=== PATIENT | male | born 1945 | race Caucasian/White ===

== ENCOUNTER 2016-04-03 14:28 | Emergency (ER) | payer MEDICARE ==
--- NOTE | 2016-04-03 15:21 | Emergency Department Record ---
History of Present Illness - General Chief complaint: Male Urogenital Problem Stated complaint: CATHETER PROBLEM Time Seen by Provider: 04/03/16 15:20 Source: Patient Mode of Arrival: Ambulatory Limitations: No limitations - History of Present Illness Initial comments: The patient is here due to being unable to straight cath himself this afternoon and having some blood in the catheter after. The patient has had a bladder issue with retention for almost 6 weeks. He did get his Dillon catheter removed yesterday and had successfully cathed himself 3 times since. The last time he tried he was not successful and did have some mild bleeding. There is no reported pain, fever, or vomiting. The patient was unable to contact his urologist so he decided to come to the ER. MD Complaint: Other Onset/Timin -: Days(s) Radiation: None Reports: Blood in urine - Related Data Home Medications Medication Instructions Recorded Confirmed Last Taken Aspirin [Aspirin EC] 81 mg PO DAILY 09/26/14 04/03/16 04/03/16 Atorvastatin Calcium [Lipitor] 40 mg PO QHS 09/26/14 04/03/16 04/03/16 Multivitamin [Multi-Vitamin Daily] 1 each PO DAILY 09/26/14 04/03/16 04/03/16 Allergies Allergy/AdvReac Type Severity Reaction Status Date / Time nabumetone [From Relafen] Allergy Mild no idea Verified 04/03/16 15:16 Travel Screening - Travel/Exposure Within Last 30 Days Have you traveled within the last 30 days?: No - Travel/Exposure Within Last Year Have you traveled outside the [place] in the last year?: No - Additonal Travel Details Have you been exposed to anyone with a communicable illness?: No - Travel Symptoms Symptom Screening: None Review of Systems Constitutional: Denies: Chills, Fever Eyes: Denies: Eye discharge ENT: Denies: Congestion Respiratory: Denies: Cough, Dyspnea Past Medical History - SOCIAL HISTORY Smoking Status: Never smoker Alcohol Use: Rare Drug Use: None - RESPIRATORY Hx Respiratory Disorders: No - CARDIOVASCULAR Hx Cardio Disorders: No - NEURO Hx Neuro Disorders: No - GI Hx GI Disorders: Yes Hx Obstructive Bowel: Yes (many yrs ago) - Hx Genitourinary Disorders: Yes Hx UTI: Yes (yr ago) - ENDOCRINE Hx Endocrine Disorders: No - MUSCULOSKELETAL Hx Musculoskeletal Disorders: Yes Comment:: swelling left breast and tender - PSYCH Hx Psych Problems: Yes Comment:: PTSD, [place] vet - HEMATOLOGY/ONCOLOGY Hx Hematology/Oncology Disorders: No Family Medical History Any Significant Family History?: Yes Hx Diabetes: Mother Physical Exam - General General Appearance: Alert, Oriented x3, Cooperative, No acute distress - Head Head exam: Atraumatic, Normocephalic, Normal inspection - Eye Eye exam: Normal appearance, PERRL - Respiratory Respiratory exam: Normal lung sounds bilaterally. negative: Respiratory distress - Cardiovascular Cardiovascular Exam: Regular rate, Normal rhythm, Normal heart sounds - GI/Abdominal GI/Abdominal exam: Soft, Normal bowel sounds. negative: Guarding, Rebound, Rigid, Tenderness - exam: Circumcision, Normal inspection. negative: Scrotal swelling, Testicular tenderness Course Vital Signs 04/03/16 15:07 Temperature 97.3 F L Pulse Rate 80 Respiratory 16 Rate Blood Pressure 164/95 Pulse Ox 96 - Reevaluation(s) Reevaluation #1: We did straight cath the patient and did get 300 cc of clear urine out with no pain or complications. There was very minimal resistance but no pain or trauma or bleeding. I did discuss the case with Dr. Kearney and he agrees with the plan to discharge and to continue the straight caths at home. 04/03/16 16:55 Disposition Disposition: Discharge Clinical Impression: Urinary retention Disposition: Home, Self-Care Condition: (1) Good Instructions: Urinary Retention in Men (ED) Additional Instructions: Please continue your discharge instructions from the Urologist. Return to the ER for any problems. Forms: Patient Portal Access Time of Disposition: 16:54
[2016-04-03 16:15] LABS: URINE APPEARANCE SL CLOUDY; URINE BILIRUBIN NEGATIVE (NEGATIVE); URINE BLOOD MODERATE (NEGATIVE); URINE COLOR YELLOW; URINE GLUCOSE (UA) NEGATIVE (NEGATIVE); URINE KETONE NEGATIVE (NEGATIVE); URINE LEUKOCYTE ESTERASE NEGATIVE (NEGATIVE); URINE NITRITE POSITIVE (NEGATIVE); URINE PROTEIN NEGATIVE (NEGATIVE); URINE UROBILINOGEN 0.2 E.U./dL (0.20 - 1.00)
[2016-04-03 16:30] LABS: URINE BACTERIA 1+; URINE EPITHELIAL CELLS 0 - 2 (FEW); URINE WBC NONE SEEN (0-2/hpf)
== END 2016-04-03 17:06 | disposition home or self-care (01) ==
LOC: ER 14:28
DX: R33.8 Other retention of urine (principal); R31.0 Gross hematuria
CPT/HCPCS: 81001; 87086; 87205; 99283

== ENCOUNTER 2016-04-04 14:54 | Emergency (ER) | payer MEDICARE ==
--- NOTE | 2016-04-04 16:19 | Emergency Department Record ---
History of Present Illness - General Chief complaint: Male Urogenital Problem Stated complaint: URINARY PROBLEM Time Seen by Provider: 04/04/16 16:19 Source: Patient Mode of Arrival: Ambulatory Limitations: No limitations - History of Present Illness Initial comments: The patient is here due to having trouble doing his self cath's at home. He recently had a garrett catheter removed due to a bladder outlet issue. He was in the ER yesterday and we were able to cath him. He went home last evening and was also successful with doing the self caths. This afternoon he has been unable to perform the procedure. His urologist has recommended we place a garrett catheter. Complaint: Other Onset/Timin -: Days(s) Radiation: None Other Reports: Urinary retention - Related Data Home Medications Medication Instructions Recorded Confirmed Last Taken Aspirin [Aspirin EC] 81 mg PO DAILY 09/26/14 04/04/16 04/04/16 Atorvastatin Calcium [Lipitor] 40 mg PO QHS 09/26/14 04/03/16 04/03/16 Multivitamin [Multi-Vitamin Daily] 1 each PO DAILY 09/26/14 04/04/16 04/04/16 Allergies Allergy/AdvReac Type Severity Reaction Status Date / Time nabumetone [From Relafen] Allergy Mild no idea Verified 04/03/16 15:16 Travel Screening - Travel/Exposure Within Last 30 Days Have you traveled within the last 30 days?: No - Travel/Exposure Within Last Year Have you traveled outside the [place] in the last year?: No - Additonal Travel Details Have you been exposed to anyone with a communicable illness?: No - Travel Symptoms Symptom Screening: None Review of Systems Constitutional: Denies: Chills, Fever, Other ENT: Denies: Congestion Respiratory: Denies: Cough, Dyspnea Past Medical History - SOCIAL HISTORY Smoking Status: Never smoker Alcohol Use: None Drug Use: None - RESPIRATORY Hx Respiratory Disorders: No - CARDIOVASCULAR Hx Cardio Disorders: No - NEURO Hx Neuro Disorders: No - GI Hx GI Disorders: Yes Hx Obstructive Bowel: Yes (many yrs ago) - Hx Genitourinary Disorders: Yes Hx UTI: Yes (yr ago) - ENDOCRINE Hx Endocrine Disorders: No - MUSCULOSKELETAL Hx Musculoskeletal Disorders: Yes Comment:: swelling left breast and tender - PSYCH Hx Psych Problems: Yes Comment:: PTSD, [place] vet - HEMATOLOGY/ONCOLOGY Hx Hematology/Oncology Disorders: No Family Medical History Any Significant Family History?: Yes Hx Diabetes: Mother Physical Exam - General General Appearance: Alert, Oriented x3, Cooperative, No acute distress - Head Head exam: Atraumatic, Normocephalic, Normal inspection - Eye Eye exam: Normal appearance, PERRL - Neck Neck exam: Normal inspection, Full ROM. negative: Tenderness - Respiratory Respiratory exam: Normal lung sounds bilaterally. negative: Respiratory distress - Cardiovascular Cardiovascular Exam: Regular rate, Normal rhythm, Normal heart sounds - GI/Abdominal GI/Abdominal exam: Soft, Normal bowel sounds. negative: Tenderness - Extremities Extremities exam: Normal inspection, Full ROM, Normal capillary refill. negative: Tenderness Course Vital Signs 04/04/16 15:33 Temperature 98.1 F Pulse Rate 87 Respiratory 16 Rate Blood Pressure 173/96 Pulse Ox 99 - Reevaluation(s) Reevaluation #1: The patient had a garrett catheter placed without difficulty. He will contact his Urologist on Wednesday for further instructions. 04/04/16 17:14 Disposition Disposition: Discharge Clinical Impression: Urinary retention Disposition: Home, Self-Care Condition: (1) Good Instructions: Garrett Catheter Placement and Care (ED) Additional Instructions: Please call your Urologist on Wednesday for further instructions. Return to the ER for any problems. Forms: Patient Portal Access Time of Disposition: 17:16
== END 2016-04-04 17:50 | disposition home or self-care (01) ==
LOC: ER 14:54
DX: R33.8 Other retention of urine (principal)
CPT/HCPCS: 99282

== ENCOUNTER 2017-01-05 23:47 | Emergency (ER) | payer MEDICARE ==
--- NOTE | 2017-01-06 00:14 | Emergency Department Record ---
History of Present Illness - General Chief complaint: Male Urogenital Problem Stated complaint: UNABLE TO CATH Time Seen by Provider: 01/06/17 00:08 Source: Patient Mode of Arrival: Ambulatory Limitations: No limitations - History of Present Illness Initial comments: 71 yo male presents to ED with a CC of urinary retention for the past 6 hours. Patient reports that he was seen by the [facility] earlier today and underwent prostate examination, reports that he has been unable to self-cath at home for the past 6 hours. Patient denies fevers, chills, or recent illness, only reports mild suprapubic cramping on examination. MD Complaint: Other (urinary retention) Onset/Timin -: Hour(s) Severity: Moderate Quality: Other (cramping) Consistency: Constant Improves with: None Worsens with: None Other Reports: Denies other symptoms - Related Data Allergies Allergy/AdvReac Type Severity Reaction Status Date / Time nabumetone [From Relafen] Allergy Mild no idea Verified 04/03/16 15:16 Travel Screening - Travel/Exposure Within Last 30 Days Have you traveled within the last 30 days?: No Review of Systems Constitutional: Denies: Chills, Fever, Malaise, Night sweats Eyes: Denies: Eye discharge, Eye pain ENT: Denies: Congestion, Ear pain, Epistaxis Respiratory: Denies: Cough, Dyspnea Cardiovascular: Denies: Chest pain, Dyspnea on exertion Endocrine: Denies: Fatigue, Heat or cold intolerance Gastrointestinal: Reports: Abdominal pain. Denies: Nausea, Vomiting Genitourinary: Reports: Retention. Denies: Incontinence Musculoskeletal: Denies: Arthralgia, Back pain, Gout, Joint swelling Skin: Denies: Bruising, Change in color Neurological: Denies: Abnormal gait, Confusion, Headache, Seizure Psychiatric: Denies: Anxiety Hematological/Lymphatic: Denies: Anemia, Blood Clots Past Medical History - SOCIAL HISTORY Smoking Status: Never smoker Alcohol Use: None Drug Use: None - RESPIRATORY Hx Respiratory Disorders: No - CARDIOVASCULAR Hx Cardio Disorders: No - NEURO Hx Neuro Disorders: No - GI Hx GI Disorders: Yes Hx Obstructive Bowel: Yes (many yrs ago) - Hx Genitourinary Disorders: Yes Hx UTI: Yes (yr ago) - ENDOCRINE Hx Endocrine Disorders: No - MUSCULOSKELETAL Hx Musculoskeletal Disorders: Yes Comment:: swelling left breast and tender - PSYCH Hx Psych Problems: Yes Comment:: PTSD, [place] vet - HEMATOLOGY/ONCOLOGY Hx Hematology/Oncology Disorders: No Family Medical History Any Significant Family History?: Yes Hx Diabetes: Mother Physical Exam - General General Appearance: Alert, Oriented x3, Cooperative, Moderate distress Limitations: No limitations - Head Head exam: Atraumatic, Normocephalic, Normal inspection Head exam detail: negative: Abrasion, Contusion, Mathew's sign, General tenderness, Hematoma, Laceration - Eye Eye exam: Normal appearance. negative: Conjunctival injection, Periorbital swelling, Periorbital tenderness, Scleral icterus - ENT Ear exam: negative: Auricular hematoma, Auricular trauma Nasal Exam: negative: Active bleeding, Discharge, Dried blood, Foreign body Mouth exam: negative: Drooling, Laceration, Muffled voice, Tongue elevation - Neck Neck exam: Normal inspection. negative: Meningismus, Tenderness - Respiratory Respiratory exam: Normal lung sounds bilaterally. negative: Rales, Respiratory distress, Rhonchi, Stridor - Cardiovascular Cardiovascular Exam: Regular rate, Normal rhythm, Normal heart sounds - GI/Abdominal GI/Abdominal exam: Soft, Tenderness (Mild suprapubic TTP on examination). negative: Rebound, Rigid - Rectal Rectal exam: Deferred - exam: Deferred - Extremities Extremities exam: Normal inspection. negative: Calf tenderness, Pedal edema, Tenderness - Back Back exam: Denies: CVA tenderness (R), CVA tenderness (L) - Neurological Neurological exam: Alert, Normal gait, Oriented X3 - Psychiatric Psychiatric exam: Normal affect, Normal mood - Skin Skin exam: Normal color. negative: Abrasion Type of lesion: negative: abrasion Course Vital Signs 01/05/17 23:56 Temperature 97.7 F Pulse Rate [ 69 Pulse Ox Probe] Respiratory 18 Rate Blood Pressure 158/80 [Left Arm] Pulse Ox 98 - Reevaluation(s) Reevaluation #1: 01/06/17 00:57 UA reviewed and appears negative for an acute process. Dillon catheter inserted without difficulty, and patient appears stable for discharge at this time. Disposition Disposition: Discharge Clinical Impression: Urinary retention Disposition: Home, Self-Care Condition: (2) Stable Instructions: Urinary Retention in Men (ED) Additional Instructions: Return to ED if your symptoms worsen or if you have any concerns. Follow-up with Dr. Kearney in 1-3 days as directed. Forms: Patient Portal Access Time of Disposition: 00:59 Quality - Quality Measures Quality Measures: N/A - Blood Pressure Screening Does Patient Have Any of the Following: No Blood Pressure Classification: Pre-Hypertensive BP Reading Systolic Measurement: 146 Diastolic Measurement: 80 Screening for High Blood Pressure: < Pre-Hypertensive BP, F/U Documented > [ G8950] Pre-Hypertensive Follow-up Interventions: Referral to alternative/primary care provider.
[2017-01-06] MEDS: LIDOCAINE UROJECT 10 ML APPL MM ONE (00:25)
[2017-01-06 00:47] LABS: URINE APPEARANCE CLEAR; URINE BILIRUBIN NEGATIVE (NEGATIVE); URINE BLOOD LARGE (NEGATIVE); URINE COLOR YELLOW; URINE GLUCOSE (UA) NEGATIVE (NEGATIVE); URINE KETONE NEGATIVE (NEGATIVE); URINE LEUKOCYTE ESTERASE SMALL (NEGATIVE); URINE NITRITE POSITIVE (NEGATIVE); URINE PROTEIN NEGATIVE (NEGATIVE); URINE UROBILINOGEN 0.2 E.U./dL (0.20 - 1.00)
[2017-01-06 00:53] LABS: URINE BACTERIA FEW; URINE EPITHELIAL CELLS 0 - 2 (FEW); URINE RBC 21 - 35 (NONE SEEN); URINE WBC 0 - 2 (0-2/hpf)
== END 2017-01-06 01:15 | disposition home or self-care (01) ==
LOC: ER 23:47
DX: R33.9 Retention of urine, unspecified (principal)
CPT/HCPCS: 81001; 99282

== ENCOUNTER 2017-01-07 22:16 | Emergency (ER) | payer MEDICARE ==
[2017-01-07] MEDS ORDERED: LIDOCAINE UROJECT 10 ML APPL MM ONE (22:40)
--- NOTE | 2017-01-07 22:59 | Emergency Department Record ---
History of Present Illness - General Chief complaint: Male Urogenital Problem Stated complaint: NEED CATH PUT IN Time Seen by Provider: 01/07/17 22:30 Source: Patient Mode of Arrival: Ambulatory Limitations: No limitations - History of Present Illness Initial comments: pt was here 3 days ago for urinary retention. he had a garrett placed. he went to the md today and they removed the cath and once again pt cannot go and comes in with urinary retention Onset/Timin -: Days(s) Radiation: None Improves with: None Worsens with: None Reports: Blood in urine, Urinary retention - Related Data Previous Rx's Medication Instructions Recorded Ciprofloxacin HCl [Cipro] 500 mg PO Q12HR #14 tablet 01/07/17 Allergies Allergy/AdvReac Type Severity Reaction Status Date / Time nabumetone [From Relafen] Allergy Mild no idea Verified 04/03/16 15:16 Travel Screening - Travel/Exposure Within Last 30 Days Have you traveled within the last 30 days?: No - Travel/Exposure Within Last Year Have you traveled outside the [place] in the last year?: No - Additonal Travel Details Have you been exposed to anyone with a communicable illness?: No Review of Systems Reviewed: No additional complaints except as noted below Constitutional: Reports: As per HPI. Denies: Chills, Fever, Malaise, Night sweats, Weakness, Weight change Eyes: Reports: As per HPI. Denies: Eye discharge, Eye pain, Photophobia, Vision change ENT: Reports: As per HPI. Denies: Congestion, Dental pain, Ear pain, Epistaxis , Hearing loss, Throat pain Respiratory: Reports: As per HPI. Denies: Cough, Dyspnea, Hemoptysis, Stridor, Wheezes Cardiovascular: Reports: As per HPI. Denies: Arrhythmia, Chest pain, Dyspnea on exertion, Edema, Murmurs, Orthopnea, Palpitations, Paroxysmal nocturnal dyspnea, Rheumatic Fever, Syncope Endocrine: Reports: As per HPI. Denies: Fatigue, Heat or cold intolerance, Polydipsia, Polyuria Gastrointestinal: Reports: As per HPI. Denies: Abdominal pain, Constipation, Diarrhea, Hematemesis, Hematochezia, Melena, Nausea, Vomiting Genitourinary: Reports: As per HPI. Denies: Dysuria, Frequency, Hematuria, Incontinence, Retention, Testicular pain, Testicular mass, Urgency Musculoskeletal: Reports: As per HPI. Denies: Arthralgia, Back pain, Gout, Joint swelling, Myalgia, Neck pain Skin: Reports: As per HPI. Denies: Bruising, Change in color, Change in hair/ nails, Lesions, Pruritus, Rash Neurological: Reports: As per HPI. Denies: Abnormal gait, Confusion, Headache, Numbness, Paresthesias, Seizure, Tingling, Tremors, Vertigo, Weakness Psychiatric: Reports: As per HPI. Denies: Anxiety, Auditory hallucinations, Depression, Homicidal thoughts, Suicidal thoughts, Visual hallucinations Hematological/Lymphatic: Reports: As per HPI. Denies: Anemia, Blood Clots, Easy bleeding, Easy bruising, Swollen glands Past Medical History - SOCIAL HISTORY Smoking Status: Never smoker Alcohol Use: None Drug Use: None - RESPIRATORY Hx Respiratory Disorders: No - CARDIOVASCULAR Hx Cardio Disorders: No - NEURO Hx Neuro Disorders: No - GI Hx GI Disorders: Yes Hx Obstructive Bowel: Yes (many yrs ago) - Hx Genitourinary Disorders: Yes Hx UTI: Yes (yr ago) - ENDOCRINE Hx Endocrine Disorders: No - MUSCULOSKELETAL Hx Musculoskeletal Disorders: Yes Comment:: swelling left breast and tender - PSYCH Hx Psych Problems: Yes Comment:: PTSD, [place] vet - HEMATOLOGY/ONCOLOGY Hx Hematology/Oncology Disorders: No Family Medical History Any Significant Family History?: Yes Hx Diabetes: Mother Physical Exam - General General Appearance: Alert, Oriented x3, Cooperative, Mild distress - Head Head exam: Normal inspection - Eye Eye exam: Normal appearance, PERRL, EOMI Pupils: Normal accommodation - ENT ENT exam: Normal exam, Mucous membranes moist, Normal external ear exam, Normal orophraynx Ear exam: Normal external inspection. negative: External canal tenderness Nasal Exam: Normal inspection. negative: Discharge, Sinus tenderness Mouth exam: Normal external inspection, Tongue normal Teeth exam: Normal inspection. negative: Dental caries Throat exam: Normal inspection. negative: Tonsillar erythema, Tonsillar exudate - Neck Neck exam: Normal inspection, Full ROM. negative: Tenderness - Respiratory Respiratory exam: Normal lung sounds bilaterally. negative: Respiratory distress - Cardiovascular Cardiovascular Exam: Regular rate, Normal rhythm, Normal heart sounds - GI/Abdominal GI/Abdominal exam: Soft, Normal bowel sounds. negative: Tenderness - Rectal Rectal exam: Deferred - exam: Deferred - Extremities Extremities exam: Normal inspection, Full ROM, Normal capillary refill. negative: Tenderness - Back Back exam: Reports: Normal inspection, Full ROM. Denies: Muscle spasm, Rash noted, Tenderness - Neurological Neurological exam: Alert, CN II-XII intact, Normal gait, Oriented X3 - Psychiatric Psychiatric exam: Normal affect, Normal mood - Skin Skin exam: Dry, Intact, Normal color, Warm Course Vital Signs 01/07/17 01/07/17 22:19 22:24 Temperature 97.7 F 97.9 F Pulse Rate 67 Pulse Rate [ 67 Pulse Ox Probe] Respiratory 20 20 Rate Blood Pressure 149/85 Blood Pressure 149/85 [Left Arm] Pulse Ox 97 96 - Reevaluation(s) Reevaluation #1: 01/07/17 22:59 catheter placed. pt feels better Disposition Disposition: Discharge Clinical Impression: Urinary retention UTI (urinary tract infection) Qualifiers: Urinary tract infection type: catheter-associated UTI Indwelling urinary catheter type: unspecified Encounter type: initial encounter Qualified Code(s): T83.511A - Infection and inflammatory reaction due to indwelling urethral catheter, initial encounter; N39.0 - Urinary tract infection, site not specified ; N39.0 - Urinary tract infection, site not specified Disposition: Home, Self-Care Condition: (1) Good Instructions: Urinary Retention in Men (ED), Urinary Tract Infection in Men (ED ) Additional Instructions: follow up with dr carpenter tomorrow. return sooner if worse Prescriptions: Ciprofloxacin HCl [Cipro] 500 mg PO Q12HR #14 tablet Forms: Patient Portal Access Quality - Quality Measures Quality Measures: N/A - Blood Pressure Screening Does Patient Have Any of the Following: No Blood Pressure Classification: Pre-Hypertensive BP Reading Systolic Measurement: 149 Diastolic Measurement: 85 Screening for High Blood Pressure: < Pre-Hypertensive BP, F/U Documented > [ G8950] Pre-Hypertensive Follow-up Interventions: Follow-up with rescreen every year.
[2017-01-07 23:04] LABS: URINE APPEARANCE CLEAR; URINE BILIRUBIN NEGATIVE (NEGATIVE); URINE BLOOD SMALL (NEGATIVE); URINE COLOR YELLOW; URINE GLUCOSE (UA) NEGATIVE (NEGATIVE); URINE KETONE NEGATIVE (NEGATIVE); URINE LEUKOCYTE ESTERASE TRACE (NEGATIVE); URINE NITRITE NEGATIVE (NEGATIVE); URINE PROTEIN NEGATIVE (NEGATIVE); URINE UROBILINOGEN 0.2 E.U./dL (0.20 - 1.00)
[2017-01-07 23:16] LABS: URINE BACTERIA FEW; URINE MUCUS LIGHT
[2017-01-07] MEDS ORDERED: CIPROFLOXACIN HCL 500 MG TABLET PO ONE (23:17)
== END 2017-01-07 23:29 | disposition home or self-care (01) ==
LOC: ER 22:16
DX: T83.511A Infection and inflammatory reaction due to indwelling urethral catheter, initial encounter (principal); N39.0 Urinary tract infection, site not specified; R33.9 Retention of urine, unspecified; R31.0 Gross hematuria
CPT/HCPCS: 81001; 99282

== ENCOUNTER 2017-05-13 22:16 | Emergency (ER) | payer MEDICARE ==
--- NOTE | 2017-05-13 23:12 | Emergency Department Record ---
History of Present Illness - General Chief complaint: Male Urogenital Problem Stated complaint: NEED A FHOLY PUT IN Time Seen by Provider: 05/13/17 22:51 Source: Patient, Family Mode of Arrival: Ambulatory Limitations: No limitations - History of Present Illness Initial comments: 71 yo male presents with a concern about urinary retention. He has a long history of prostate and urinary symptoms. He has had multiple surgeries in the past. Dr Kearney and [facility] have been his surgeons. He most recently had a TURP at [facility] [place] Wednesday. He had the garrett removed today. He had a garrett in for 3 months prior to this surgery. His garrett was removed at 10am today. He did self cath today twice but then voided in the evening and then at arrival but a smaller amount. He feels some urge to void at this time and is concerned about retention. Complaint: Other (Urinary difficulty) -: Hour(s) Location: Abdomen Radiation: None Severity: Mild Quality: Other (pressure) Consistency: Intermittent Improves with: Other (Garrett) Worsens with: Urination Recent surgery (garrett removed today) Reports: Denies other symptoms - Related Data Allergies Allergy/AdvReac Type Severity Reaction Status Date / Time sulfamethoxazole Allergy Intermediate Rash Verified 05/13/17 23:03 [From Bactrim] trimethoprim [From Bactrim] Allergy Intermediate Rash Verified 05/13/17 23:03 nabumetone [From Relafen] Allergy Mild no idea Verified 04/03/16 15:16 Review of Systems Constitutional: Denies: Chills, Fever, Malaise, Weakness Eyes: Denies: Eye discharge, Eye pain ENT: Denies: Congestion, Throat pain Respiratory: Denies: Cough Cardiovascular: Denies: Chest pain, Syncope Endocrine: Denies: Fatigue Gastrointestinal: Reports: Abdominal pain. Denies: Diarrhea, Nausea, Vomiting Genitourinary: Reports: Frequency, Retention. Denies: Discharge, Dysuria, Hematuria, Incontinence, Testicular pain, Testicular mass, Urgency Musculoskeletal: Denies: Arthralgia, Back pain, Neck pain Skin: Denies: Bruising, Change in color, Rash Neurological: Denies: Headache, Numbness, Weakness Psychiatric: Denies: Anxiety Hematological/Lymphatic: Denies: Blood Clots, Easy bleeding, Easy bruising, Swollen glands Past Medical History - SOCIAL HISTORY Smoking Status: Never smoker Drug Use: None - RESPIRATORY Hx Respiratory Disorders: No - CARDIOVASCULAR Hx Cardio Disorders: No - NEURO Hx Neuro Disorders: No - GI Hx GI Disorders: Yes Hx Obstructive Bowel: Yes (many yrs ago) - Hx Genitourinary Disorders: Yes Hx UTI: Yes (yr ago) - ENDOCRINE Hx Endocrine Disorders: No - MUSCULOSKELETAL Hx Musculoskeletal Disorders: Yes Comment:: swelling left breast and tender - PSYCH Hx Psych Problems: Yes Comment:: PTSD, [place] vet - HEMATOLOGY/ONCOLOGY Hx Hematology/Oncology Disorders: No Family Medical History Hx Diabetes: Mother Physical Exam - General General Appearance: Alert, Oriented x3, Cooperative, No acute distress - Head Head exam: Normal inspection - Eye Eye exam: Normal appearance - ENT ENT exam: Normal exam Ear exam: Normal external inspection Nasal Exam: Normal inspection Mouth exam: Normal external inspection - Neck Neck exam: Normal inspection, Full ROM. negative: Tenderness - Respiratory Respiratory exam: Normal lung sounds bilaterally. negative: Respiratory distress - Cardiovascular Cardiovascular Exam: Regular rate, Normal rhythm, Normal heart sounds - GI/Abdominal GI/Abdominal exam: Soft. negative: Distended, Guarding, Rebound, Rigid, Tenderness - Rectal Rectal exam: Deferred - exam: Circumcision, Normal inspection. negative: Scrotal swelling, Testicular tenderness, Urethral discharge - Extremities Extremities exam: Normal inspection, Full ROM, Normal capillary refill. negative: Tenderness - Back Back exam: Reports: Normal inspection, Full ROM. Denies: Muscle spasm, Rash noted, Tenderness - Neurological Neurological exam: Alert, Normal gait, Oriented X3 - Psychiatric Psychiatric exam: Normal affect, Normal mood - Skin Skin exam: Dry, Intact, Normal color, Warm Course - Reevaluation(s) Reevaluation #1: 05/13/17 23:13 The vitals were reviewed. No acute changes 05/13/17 23:45 Garrett was easily placed by RN Gold yellow urine without blood About 1100cc He will be given a leg bag for home He will call his urologist in the morning for instructions. He is very comfortable in the ED No symptoms at this time. 05/14/17 00:08 He is on Cipro and Nitrofurnatoin already and will continue his antibiotics Disposition Disposition: Discharge Clinical Impression: Urinary retention Disposition: Home, Self-Care Condition: (1) Good Instructions: Urinary Retention in Men (ED) Additional Instructions: Continue your antibiotics as directed Call your urologist tomorrow for further instructions regarding the garrett Return if you have any concerns about the garrett function, fever, pain, retention Forms: Patient Portal Access Time of Disposition: 23:00 Quality - Quality Measures Quality Measures: N/A - Blood Pressure Screening Does Patient Have Any of the Following: No, Active Dx of HTN Blood Pressure Classification: Hypertensive Reading Systolic Measurement: 168 Diastolic Measurement: 91 Screening for High Blood Pressure: < Pre-Hypertensive BP, F/U Documented > [ G8950] Pre-Hypertensive Follow-up Interventions: Referral to alternative/primary care provider.
[2017-05-14 00:06] LABS: URINE APPEARANCE CLEAR; URINE BILIRUBIN NEGATIVE (NEGATIVE); URINE BLOOD LARGE (NEGATIVE); URINE COLOR YELLOW; URINE GLUCOSE (UA) NEGATIVE (NEGATIVE); URINE KETONE NEGATIVE (NEGATIVE); URINE LEUKOCYTE ESTERASE TRACE (NEGATIVE); URINE NITRITE NEGATIVE (NEGATIVE); URINE UROBILINOGEN 0.2 E.U./dL (0.20 - 1.00)
[2017-05-14 00:18] LABS: URINE BACTERIA RARE
== END 2017-05-14 00:27 | disposition home or self-care (01) ==
LOC: ER 22:16
DX: R33.8 Other retention of urine (principal)
CPT/HCPCS: 81001; 99282

== ENCOUNTER 2017-05-28 11:39 | Inpatient (IN) | payer MEDICARE ==
[2017-05-28] MEDS ORDERED: ONDANSETRON HCL IV 4 MG/2 ML VIAL IV ONE (12:03)
[2017-05-28] MEDS ORDERED: 0.9 % SODIUM CHLORIDE 1,000 ML BAG IV ONE ×2 (12:03→14:30)
[2017-05-28] MEDS ORDERED: ACETAMINOPHEN 325 MG TAB PO ONE (12:04)
--- NOTE | 2017-05-28 12:12 | Emergency Department Record ---
History of Present Illness - General Chief Complaint: Fever Stated Complaint: FEVER/POST SURGERY Time Seen by Provider: 05/28/17 11:56 Source: Patient Mode of Arrival: Ambulatory Limitations: No limitations - History of Present Illness Initial Comments: The patient is here due to a 3 hour hx of the acute onset of fever, chills, and body aches. The patient did have a TURP done about 3 weeks ago and had a problem with retention after. He had a garrett removed on 05/18 and has been straight cathing since. Today he states the fever came on suddenly and he feels very ill. There is no hx of vomiting, diarrhea, AP, CP or SOB. MD Complaint: Fever, Malaise Onset/Timin -: Hour(s) Temperature Source: Oral Treatments Prior to Arrival: Acetaminophen - Related Data Allergies Allergy/AdvReac Type Severity Reaction Status Date / Time sulfamethoxazole Allergy Intermediate Rash Verified 05/28/17 11:54 [From Bactrim] trimethoprim [From Bactrim] Allergy Intermediate Rash Verified 05/28/17 11:54 nabumetone [From Relafen] Allergy Mild no idea Verified 05/28/17 11:54 Travel Screening - Travel/Exposure Within Last 30 Days Have you traveled within the last 30 days?: No - Travel/Exposure Within Last Year Have you traveled outside the [place] in the last year?: No - Additonal Travel Details Have you been exposed to anyone with a communicable illness?: No - Travel Symptoms Symptom Screening: None - Additional Travel Comment Additional Travel/Exposure Comment: travel april 17 thru [facility] Review of Systems Constitutional: Reports: Chills, Fever, Malaise Eyes: Denies: Eye discharge ENT: Denies: Congestion Respiratory: Denies: Cough, Dyspnea Past Medical History - SOCIAL HISTORY Smoking Status: Never smoker Alcohol Use: None Drug Use: None - RESPIRATORY Hx Respiratory Disorders: No - CARDIOVASCULAR Hx Cardio Disorders: No - NEURO Hx Neuro Disorders: No - GI Hx GI Disorders: Yes Hx Obstructive Bowel: Yes (many yrs ago) - Hx Genitourinary Disorders: Yes Hx UTI: Yes (yr ago) - ENDOCRINE Hx Endocrine Disorders: No - MUSCULOSKELETAL Hx Musculoskeletal Disorders: Yes Comment:: swelling left breast and tender - PSYCH Hx Psych Problems: Yes Comment:: PTSD, [place] vet - HEMATOLOGY/ONCOLOGY Hx Hematology/Oncology Disorders: No Family Medical History Any Significant Family History?: Yes Hx Diabetes: Mother Physical Exam - General General Appearance: Alert, Oriented x3, Cooperative, No acute distress - Head Head exam: Atraumatic, Normocephalic, Normal inspection - Eye Eye exam: Normal appearance, PERRL - Neck Neck exam: Normal inspection, Full ROM. negative: Meningismus (The neck is very supple.), Tenderness - Respiratory Respiratory exam: Normal lung sounds bilaterally. negative: Respiratory distress - Cardiovascular Cardiovascular Exam: Regular rate, Normal rhythm, Normal heart sounds - GI/Abdominal GI/Abdominal exam: Soft, Normal bowel sounds. negative: Tenderness - Extremities Extremities exam: Normal inspection, Full ROM, Normal capillary refill. negative: Tenderness - Neurological Neurological exam: Alert. negative: Motor sensory deficit Course Vital Signs 05/28/17 11:46 Temperature 100.6 F H Pulse Rate 120 H Respiratory 16 Rate Blood Pressure 126/60 Pulse Ox 91 L - Reevaluation(s) Reevaluation #1: The patient is doing a little better at this time. His Temp is 98.5 and he denies any pain or discomfort. 05/28/17 12:47 Reevaluation #2: The patient is feeling better at this time. He is resting comfortably and is hemodynamically very stable. His temp is down to normal and he denies any pain or discomfort other than a mild VALDES. 05/28/17 13:33 Reevaluation #3: The patient is feeling better at this time. He is hemodynamically stable and no longer is tachycardic. The repeat temp is no 100.2 so we will give some Motrin and a repeat fluid bolus of 55cc's. The patient does still have a very mild VALDES but no neck pain or stiffness. I did discuss the need for admission here at [facility] and the patient did agree. I also did discuss the case with Dr. Campbell and he does accept the admission. 05/28/17 14:30 Medical Decision Making - Data Complexity MDM Data: Labs Ordered and/or Reviewed, X-Ray Ordered and/or Reviewed, EKG Ordered and/or Reviewed - Lab Data Result diagrams: 05/28/17 12:25 05/28/17 12:25 - EKG Data -: EKG Interpreted by Me EKG: No Acute Changes - Radiology Data Radiology results: Report reviewed (CXR: Neg.) Disposition Disposition: Admit Clinical Impression: Pyelonephritis Disposition: Still a Patient at [facility] Decision to Admit: Admit from ER Decision to Admit Date: 05/28/17 Decision to Admit Time: 14:32 Accepting Physician: Adrian Morton Discussed w/Accepting Physician: 14:32 Time of Disposition: 14:32 Quality - Quality Measures Quality Measures: N/A - Blood Pressure Screening View Details: Yes Does Patient Have Any of the Following: No Blood Pressure Classification: Pre-Hypertensive BP Reading Systolic Measurement: 126 Diastolic Measurement: 60 Screening for High Blood Pressure: < Pre-Hypertensive BP, F/U Documented > [ G8950] Pre-Hypertensive Follow-up Interventions: Referral to alternative/primary care provider.
[2017-05-28] MEDS ORDERED: CEFTRIAXONE SODIUM 1 GM in 0.9 % SODIUM CHLORIDE 100ML 100 ML IVPB ONE (12:31)
[2017-05-28 12:38] LABS: BASO % 0.2 % (0-6); HEMATOCRIT 43.4 % (42.0-52.0); HEMOGLOBIN 14.3 gm/dl (14.0-18.0); LYMPH % 2.5 % (16-45); MEAN CELL VOLUME 91.9 fl (81-97); MEAN CORPUSCULAR HEMOGLOBIN 30.3 pg (27-33); MEAN CORPUSCULAR HGB CONC 32.9 g/dl (32-36); MEAN PLATELET VOLUME 11.1 fl (7.4-10.4); MONO % 5.1 % (0-9); PLATELET COUNT 236 K/uL (130-400); RED BLOOD COUNT 4.72 M/uL (4.40-5.70); RED CELL DISTRIBUTION WIDTH 12.8 % (11.5-14.5); URINE APPEARANCE CLEAR; URINE BILIRUBIN NEGATIVE (NEGATIVE); URINE BLOOD MODERATE (NEGATIVE); URINE COLOR YELLOW; URINE GLUCOSE (UA) NEGATIVE (NEGATIVE); URINE KETONE NEGATIVE (NEGATIVE); URINE LEUKOCYTE ESTERASE MODERATE (NEGATIVE); URINE NITRITE POSITIVE (NEGATIVE); URINE PROTEIN TRACE (NEGATIVE); URINE UROBILINOGEN 0.2 E.U./dL (0.20 - 1.00)
[2017-05-28 12:48] LABS: URINE BACTERIA FEW; URINE WBC 21 - 35 (0-2/hpf)
[2017-05-28 12:50] LABS: WHITE BLOOD COUNT W/O DIFF 22.1 K/uL (4.2-12.2)
[2017-05-28] MEDS ORDERED: 0.9 % SODIUM CHLORIDE 1000ML 1,000 ML IV PRN ×2 (12:58→15:40)
[2017-05-28] MEDS ORDERED: LEVOFLOXACIN 500MG IVPB 500 MG/100 ML BAG IVPB ONE (13:19)
[2017-05-28 14:14] LABS: BLOOD UREA NITROGEN 19 mg/dL (8-23); C-REACTIVE PROTEIN 0.46 mg/dL (<0.5); CREATININE 0.8 mg/dL (0.7-1.2); EST GLOMERULAR FILTRATION RATE > 60 mL/min; GLUCOSE,RANDOM 148 mg/dL (74-109)
[2017-05-28] MEDS ORDERED: POTASSIUM CHLORIDE 20 MEQ TABLET PO ONE (14:20)
[2017-05-28] MEDS ORDERED: IBUPROFEN 600 MG TABLET PO ONE (14:29)
[2017-05-28] MEDS ORDERED: IBUPROFEN 600 MG TABLET PO PRN (15:40)
[2017-05-28] MEDS ORDERED: ACETAMINOPHEN 500 MG TABLET PO PRN (15:40)
--- NOTE | 2017-05-28 16:03 | History & Physical ---
History of Present Illness - Date of Service Date of Service for History & Physical: 05/28/17 - History of Present Illness Admitting Diagnosis: Acute Pyelonephritis History of Present Illness: Mr. Barfield is a 71 y/o male here with complaint of fever, chills and weakness which binh suddenly earlier today. The patient had a TURP about 2 weeks ago due to urinary retention from neurogenic bladder and since that time has been straight catheterizing himself. The patient says that he has been careful with hand washing and cleaning before and after inserting the catheter. He has not noticed any change in smell, color or odor of his urine and has not had any abdominal pain or distension. On arriving to the ED the patient appeared to be weak, but afebrile and with stable vitals. Labs showed elevated whit count and urine positive for leukocytes , nitrites and WBCs. Cultures of urine and blood were obtained and the patient was started on IV antibiotics and fluids. On bedside examination this afternoon the patient appears comfortable but laments that he has to continue with catheterization in order to pass urine. Travel Screening - Travel/Exposure Within Last 30 Days Have you traveled within the last 30 days?: No - Travel/Exposure Within Last Year Have you traveled outside the [place] in the last year?: No - Additonal Travel Details Have you been exposed to anyone with a communicable illness?: No - Travel Symptoms Symptom Screening: None - Additional Travel Comment Additional Travel/Exposure Comment: travel april 17 thru [facility] Review of Systems Constitutional: Reports: Chills, Fever, Malaise Eyes: Denies: Eye discharge ENT: Denies: Congestion Respiratory: Denies: Cough, Dyspnea Cardiovascular: Reports: As per HPI. Denies: Arrhythmia, Chest pain, Dyspnea on exertion, Edema, Murmurs, Orthopnea, Palpitations, Paroxysmal nocturnal dyspnea, Rheumatic Fever, Syncope Endocrine: Reports: As per HPI. Denies: Fatigue, Heat or cold intolerance, Polydipsia, Polyuria Gastrointestinal: Reports: As per HPI. Denies: Abdominal pain, Constipation, Diarrhea, Hematemesis, Hematochezia, Melena, Nausea, Vomiting Genitourinary: Reports: Retention Musculoskeletal: Reports: As per HPI. Denies: Arthralgia, Back pain, Gout, Joint swelling, Myalgia, Neck pain Skin: Reports: As per HPI. Denies: Bruising, Change in color, Change in hair/ nails, Lesions, Pruritus, Rash Neurological: Reports: As per HPI. Denies: Abnormal gait, Confusion, Headache, Numbness, Paresthesias, Seizure, Tingling, Tremors, Vertigo, Weakness Past Medical History - SOCIAL HISTORY Smoking Status: Never smoker Alcohol Use: None Drug Use: None - RESPIRATORY Hx Respiratory Disorders: No - CARDIOVASCULAR Hx Cardio Disorders: No - NEURO Hx Neuro Disorders: No - GI Hx GI Disorders: Yes Hx Obstructive Bowel: Yes (many yrs ago) - Hx Genitourinary Disorders: Yes Hx UTI: Yes (yr ago) - ENDOCRINE Hx Endocrine Disorders: No - MUSCULOSKELETAL Hx Musculoskeletal Disorders: Yes Comment:: swelling left breast and tender - PSYCH Hx Psych Problems: Yes Comment:: PTSD, [place] vet - HEMATOLOGY/ONCOLOGY Hx Hematology/Oncology Disorders: No Family Medical History Any Significant Family History?: Yes Hx Diabetes: Mother H&P Meds/Allergies - Allergies Allergies: Allergies Allergy/AdvReac Type Severity Reaction Status Date / Time sulfamethoxazole Allergy Intermediate Rash Verified 05/28/17 11:54 [From Bactrim] trimethoprim [From Bactrim] Allergy Intermediate Rash Verified 05/28/17 11:54 nabumetone [From Relafen] Allergy Mild no idea Verified 05/28/17 11:54 - Active Medications Active Medications: Current Medications Acetaminophen (Tylenol 500mg Tab) 1,000 mg PO Q6H PRN PRN Reason: PAIN/TEMP Aspirin (Ecotrin (Ec)) 81 mg PO DAILY [facility] Sodium Chloride () 1,000 mls @ 100 mls/hr IV .Q10H PRN PRN Reason: LARGE VOLUME IV Last Admin: 05/28/17 13:28 Dose: 100 mls/hr Sodium Chloride () 1,000 mls @ 125 mls/hr IV .Q8H PRN PRN Reason: LARGE VOLUME IV Ceftriaxone Sodium 1 gm/ (Sodium Chloride) 100 mls @ 200 mls/hr IVPB Q12HR [facility]ON Stop: 06/02/17 22:01 Levofloxacin/Dextrose (Levaquin 500mg Ivpb) 500 mg in 100 mls @ 125 mls/hr IVPB Q24H [facility] Stop: 06/03/17 13:01 Ibuprofen (Motrin 600mg) 600 mg PO Q8H PRN PRN Reason: FEVER Physical Exam - General General Appearance: Alert, Oriented x3, Cooperative, No acute distress Limitations: No limitations - Head Head exam: Atraumatic, Normocephalic, Normal inspection - Eye Eye exam: Normal appearance, PERRL - Neck Neck exam: Normal inspection, Full ROM. negative: Meningismus (The neck is very supple.), Tenderness - Respiratory Respiratory exam: Normal lung sounds bilaterally. negative: Respiratory distress - Cardiovascular Cardiovascular Exam: Regular rate, Normal rhythm, Normal heart sounds Peripheral Pulses: 3+: Radial (R), Radial (L), Dorsalis Pedis (R), Dorsalis Pedis (L) - GI/Abdominal GI/Abdominal exam: Soft, Normal bowel sounds. negative: Tenderness - exam: Normal inspection - Extremities Extremities exam: Normal inspection, Full ROM, Normal capillary refill. negative: Tenderness - Neurological Neurological exam: Alert. negative: Motor sensory deficit Results - Labs Result Diagrams: 05/28/17 12:25 05/28/17 12:25 VTE H&P Assessment - Risk for VTE Risk for VTE: Yes Risk Level: Moderate Risk Assessment Date: 05/28/17 Risk Assessment Time: 16:00 VTE Orders Placed or Will Be Placed: Yes Plan - Inpatient Certification Inpatient Certification: Admit to inpatient care: Based on my medical assessment, after consideration of patient's risk factors (age, co-morbidities and patient presenting symptoms and acuity), I expect that this patient will remain in the hospital greater than or equal to two midnights and that the services needed warrant inpatient care because: Patient Risk Factors: UTI I certify that my determination is in accordance with my understanding of Medicare requirements for reasonable and necessary inpatient services. 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 (3) DVT prophylaxis Current Visit: Yes Status: Acute Base Code: [id number] - Comment: 05/28 - Lovenox 40mg daily - SCDs while in bed (4) Full code status Current Visit: Yes Status: Acute Base Code: Z78.9 - OTHER SPECIFIED HEALTH STATUS Comment: FULL CODE - Disposition Cont IV fluid and abx.
[2017-05-28] MEDS: 0.9 % SODIUM CHLORIDE 1,000 ML BAG IV PRN (20:15)
[2017-05-28] MEDS: CEFTRIAXONE SODIUM 1 GM in 0.9 % SODIUM CHLORIDE 100ML 100 ML IVPB SCH (21:56)
[2017-05-29 06:08] LABS: HEMATOCRIT 35.9 % (42.0-52.0); HEMOGLOBIN 11.8 gm/dl (14.0-18.0); MEAN CELL VOLUME 92.1 fl (81-97); MEAN CORPUSCULAR HGB CONC 32.9 g/dl (32-36); MEAN PLATELET VOLUME 11.4 fl (7.4-10.4); PLATELET COUNT 191 K/uL (130-400); RED CELL DISTRIBUTION WIDTH 12.9 % (11.5-14.5)
[2017-05-29] MEDS: 0.9 % SODIUM CHLORIDE 1,000 ML BAG IV PRN ×2 (06:54→17:07)
[2017-05-29 06:56] LABS: MEAN CORPUSCULAR HEMOGLOBIN 30.2 pg (27-33); WHITE BLOOD COUNT W/O DIFF 21.8 K/uL (4.2-12.2)
[2017-05-29 06:57] LABS: PLATELET ESTIMATE NORMAL (NORMAL)
[2017-05-29 08:56] LABS: BLOOD UREA NITROGEN 17 mg/dL (8-23); CREATININE 0.7 mg/dL (0.7-1.2); EST GLOMERULAR FILTRATION RATE > 60 mL/min; GLUCOSE,RANDOM 107 mg/dL (74-109)
[2017-05-29] MEDS: CEFTRIAXONE SODIUM 1 GM in 0.9 % SODIUM CHLORIDE 100ML 100 ML IVPB SCH ×2 (09:08→22:29)
[2017-05-29] MEDS: ENOXAPARIN 40 MG/0.4 ML SYR SQ SCH (09:08)
[2017-05-29] MEDS: ASPIRIN 81 MG TABEC PO SCH (09:08)
[2017-05-29] MEDS ORDERED: GUAIFENESIN 600 MG TABCR PO PRN ×2 (10:30→11:37)
--- NOTE | 2017-05-29 11:42 | Physician Progress Note ---
Subjective - Date Date of Physician Progress Note: 05/29/17 - Subjective Subjective Comment: The patient is awake, alert and oriented. He is quite depressed about being in hospital. He says that he has been able to cath himself this morning and was able to obtain about 400mL. He says urine is clear, odorless and no blood observed. Objective - Vital Signs Vital Signs: Vital Signs - Last 24 Hrs Temp Pulse Resp BP BP Pulse Ox 05/29/17 09:00 98.9 F 61 18 104/40 94 L 05/29/17 08:30 20 05/29/17 05:00 98.4 F 73 16 106/56 92 L 05/29/17 01:00 98.5 F 66 17 102/49 92 L 05/28/17 21:40 98.4 F 62 16 101/56 94 L 05/28/17 21:00 16 05/28/17 17:40 97.7 F 70 16 111/60 97 05/28/17 15:35 99.0 F 84 18 105/54 96 - General General Appearance: Alert, Oriented x3, Cooperative, No acute distress Limitations: No limitations - Head Head exam: Atraumatic, Normocephalic, Normal inspection - Eye Eye exam: Normal appearance, PERRL - Neck Neck exam: Normal inspection, Full ROM. negative: Meningismus (The neck is very supple.), Tenderness - Respiratory Respiratory exam: Normal lung sounds bilaterally. negative: Respiratory distress - Cardiovascular Cardiovascular Exam: Regular rate, Normal rhythm, Normal heart sounds Peripheral Pulses: 3+: Radial (R), Radial (L), Dorsalis Pedis (R), Dorsalis Pedis (L) - GI/Abdominal GI/Abdominal exam: Soft, Normal bowel sounds. negative: Tenderness - exam: Normal inspection - Extremities Extremities exam: Normal inspection, Full ROM, Normal capillary refill. negative: Tenderness - Neurological Neurological exam: Alert. 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 (3) DVT prophylaxis Current Visit: Yes Status: Acute Base Code: [id number] - Comment: 05/29 - encouraged ambulation and sitting up at bedside - Lovenox 40mg daily - SCDs while in bed (4) Full code status Current Visit: Yes Status: Acute Base Code: Z78.9 - OTHER SPECIFIED HEALTH STATUS Comment: FULL CODE - Disposition Disposition: Cont IV fluid and abx. Results - Labs Result Diagrams: 05/29/17 05:40 05/29/17 05:40 Labs Last 24 Hours: Laboratory Results - last 24 hr 05/29/17 05/29/17 05:40 05:40 WBC 21.8 H* RBC 3.90 L Hgb 11.8 L Hct 35.9 L MCV 92.1 MCH 30.2 MCHC 32.9 RDW 12.9 Plt Count 191 MPV 11.4 H Neutrophils % 82.0 H Eosinophils % Not Reportable Basophils % Not Reportable Lymphocytes 10.0 L Monocytes 6.0 Platelet Estimate Normal RBC Morphology Normal Morphology Comment Eosinophil Count 2.0 Sodium 140 Potassium 4.1 Chloride 106 Carbon Dioxide 23.0 Anion Gap 11.0 BUN 17 Creatinine 0.7 Estimated GFR > 60 Random Glucose 107 Calcium 8.5 L DVT/PE Assessment - Risk for VTE Risk for VTE: No Risk Level: Moderate Risk Assessment Date: 05/28/17 Risk Assessment Time: 16:00 VTE Orders Placed or Will Be Placed: Yes - Active Medicaitons Current Medications: Current Medications Acetaminophen (Tylenol 500mg Tab) 1,000 mg PO Q6H PRN PRN Reason: PAIN/TEMP Last Admin: 05/29/17 09:07 Dose: 1,000 mg Aspirin (Ecotrin (Ec)) 81 mg PO DAILY [facility] Last Admin: 05/29/17 09:08 Dose: 81 mg Enoxaparin Sodium (Lovenox) 40 mg SQ DAILY [facility] Last Admin: 05/29/17 09:08 Dose: 40 mg Guaifenesin (Mucinex) 600 mg PO Q6H PRN PRN Reason: Cold Symptons Guaifenesin (Mucinex) 600 mg PO BID PRN PRN Reason: Cold Symptons Ceftriaxone Sodium 1 gm/ (Sodium Chloride) 100 mls @ 200 mls/hr IVPB Q12HR [facility] Stop: 06/02/17 22:01 Last Infusion: 05/29/17 09:40 Dose: Infused Levofloxacin/Dextrose (Levaquin 500mg Ivpb) 500 mg in 100 mls @ 125 mls/hr IVPB Q24H [facility] Stop: 06/03/17 13:01 Ibuprofen (Motrin 600mg) 600 mg PO Q8H PRN PRN Reason: FEVER Sodium Chloride () 125 ml IV CONT PRN PRN Reason: LARGE VOLUME IV Last Admin: 05/29/17 06:54 Dose: 125 ml AMI Plan - Labs Result Diagrams: 05/29/17 05:40 05/29/17 05:40
[2017-05-29] MEDS ORDERED: LEVOFLOXACIN 500MG IVPB 500 MG/100 ML BAG IVPB SCH (13:00)
--- NOTE | 2017-05-29 13:32 | RADIOLOGY REPORT ---
DATE: 05/28/2017. EXAM: PORTABLE CHEST. HISTORY: Difficulty breathing. TECHNIQUE: Portable AP upright view of the chest was performed. FINDINGS: Heart size is normal. No pulmonary vascular congestion. No infiltrate or pleural effusion. The osseous structures are normal. IMPRESSION: NEGATIVE CHEST EXAMINATION. JOB NUMBER: [id number] MTDD
[2017-05-30] MEDS: 0.9 % SODIUM CHLORIDE 1,000 ML BAG IV PRN (02:08)
[2017-05-30 06:40] LABS: HEMATOCRIT 39.6 % (42.0-52.0); HEMOGLOBIN 12.9 gm/dl (14.0-18.0); MEAN CELL VOLUME 92.7 fl (81-97); MEAN CORPUSCULAR HEMOGLOBIN 30.2 pg (27-33); MEAN CORPUSCULAR HGB CONC 32.6 g/dl (32-36); MEAN PLATELET VOLUME 11.2 fl (7.4-10.4); PLATELET COUNT 204 K/uL (130-400); RED BLOOD COUNT 4.27 M/uL (4.40-5.70); WHITE BLOOD COUNT W/O DIFF 11.5 K/uL (4.2-12.2)
--- NOTE | 2017-05-30 07:56 | Discharge Summary ---
Providers Discharge Summary Date: 05/30/17 Date of admission: 05/28/17 15:30 Attending physician: KARAN PHIPPS Primary care physician: SEVERINO BUSTILLO D.O. Physical Exam - Vital Signs Vital Signs: Vital Signs - Last 24 Hrs Temp Pulse Resp BP BP Pulse Ox 05/30/17 06:40 98.9 F 69 18 145/67 95 05/30/17 03:00 99.5 F 83 18 132/69 92 L 05/29/17 22:32 99.1 F 70 16 146/70 96 05/29/17 21:00 70 16 05/29/17 18:52 99.1 F 73 18 148/69 98 05/29/17 15:00 98.7 F 55 L 18 113/56 95 05/29/17 09:00 98.9 F 61 18 104/40 94 L 05/29/17 08:30 20 - General General Appearance: Alert, Oriented x3, Cooperative, No acute distress Limitations: No limitations - Head Head exam: Atraumatic, Normocephalic, Normal inspection - Eye Eye exam: Normal appearance, PERRL - Neck Neck exam: Normal inspection, Full ROM. negative: Meningismus (The neck is very supple.), Tenderness - Respiratory Respiratory exam: Normal lung sounds bilaterally. negative: Respiratory distress - Cardiovascular Cardiovascular Exam: Regular rate, Normal rhythm, Normal heart sounds Peripheral Pulses: 3+: Radial (R), Radial (L), Dorsalis Pedis (R), Dorsalis Pedis (L) - GI/Abdominal GI/Abdominal exam: Soft, Normal bowel sounds. negative: Tenderness - exam: Normal inspection - Extremities Extremities exam: Normal inspection, Full ROM, Normal capillary refill. negative: Tenderness - Neurological Neurological exam: Alert. negative: Motor sensory deficit Hospitalization - Hospitalization Admission Diagnosis: Acute Pyelonephritis - Problem List/Discharge Diagnosis (1) Urinary tract infection associated with catheterization of urinary tract Current Visit: Yes Status: Acute Base Code: T83.511A - I/I REACT D/T INDWELLING URETHRAL CATHETER, INIT; N39.0 - URINARY TRACT INFECTION, SITE NOT SPECIFIED Comment: 05/29 - WBC 21 --> 11.9, cultures still pending. I called lab and there will be a delay in reporting. Will call patient if sensitivities suggest the need for change. - d/c IV Rocephin 1gm, Levaquin 500mg Q24H - Nacl 0.9% @ 75mL/hr, Acetaminophen Q4H PRN - Repeat lytes and cbc w/ diff in the morning - cont straight cath PRN, director hair (2) Neurogenic dysfunction of the urinary bladder Current Visit: Yes Status: Acute Base Code: N31.9 - NEUROMUSCULAR DYSFUNCTION OF BLADDER, UNSPECIFIED Comment: 05/30 - straight cath daily w/ sterile technique - 400mL urine with nearly 1 liter retained after cath. - urology follow up within the week for recommendations. (3) DVT prophylaxis Current Visit: Yes Status: Acute Base Code: [id number] - Comment: 05/30 - encouraged ambulation and sitting up at bedside - Lovenox 40mg daily - SCDs while in bed (4) Full code status Current Visit: Yes Status: Acute Base Code: Z78.9 - OTHER SPECIFIED HEALTH STATUS Comment: FULL CODE - Disposition Cont IV fluid and abx. - Hospitalization Course Disposition: Home, Self-Care Hospital Course: Mr. Barfield is a 71 y/o male here with complaint of fever, chills and weakness which binh suddenly earlier today. The patient had a TURP about 2 weeks ago due to urinary retention from neurogenic bladder and since that time has been straight catheterizing himself. The patient says that he has been careful with hand washing and cleaning before and after inserting the catheter. He has not noticed any change in smell, color or odor of his urine and has not had any abdominal pain or distension. On arriving to the ED the patient appeared to be weak, but afebrile and with stable vitals. Labs showed elevated whit count and urine positive for leukocytes , nitrites and WBCs. Cultures of urine and blood were obtained and the patient was started on IV antibiotics and fluids. On bedside examination this afternoon the patient appears comfortable but laments that he has to continue with catheterization in order to pass urine. 3/ - patient really not doing well with having to cath himself daily and is frustrated by the process. White count remains high and IV abx continued. 3/ - patient is up and about appearing more comfortable. White count has decreased dramatically overnight and patient is cathing himself without issue. The patient is to continue oral antibiotics for the next three days and follow up with urologist at the [facility] for further care. We still await urine and blood culture results and will tailor antibiotics if needed. Abnormal Labs: Abnormal Lab Results 05/29/17 05/29/17 05/30/17 Range/Units 05:40 05:40 06:00 WBC 21.8 H* (4.2-12.2) K/uL RBC 3.90 L 4.27 L (4.40-5.70) M/uL Hgb 11.8 L 12.9 L (14.0-18.0) gm/dl Hct 35.9 L 39.6 L (42.0-52.0) % MPV 11.4 H 11.2 H (7.4-10.4) fl Neutrophils % 82.0 H (47-80) % Lymphocytes 10.0 L (16-45) % Calcium 8.5 L (8.8-10.2) mg/dL Discharge Medications - Discharge Medications Prescriptions: Levofloxacin [Levaquin] 750 mg PO DAILY 3 Days #3 tab Home Medications: Ambulatory Orders Aspirin [Aspirin EC] 81 mg PO DAILY 09/26/14 [Last Taken 05/28/17 07:00] Atorvastatin Calcium [Lipitor] 40 mg PO QHS 09/26/14 [Last Taken 05/27/17 21:00] Multivitamin [Multi-Vitamin Daily] 1 each PO DAILY 09/26/14 [Last Taken 07:00] Levofloxacin [Levaquin] 750 mg PO DAILY 3 Days #3 tab 05/30/17 [Last Taken Unknown] Discharge Plan - Discharge Instructions Activity at Discharge: Resume Usual Activities As Tolerated Diet at Discharge: Regular Diet Instructions: Kidney Infection (DC), Catheter-associated Urinary Tract Infection (DC) Additional Instructions: Patient to follow up with Urology or PCP at [facility] within 5-7 days. Continue cathterization daily with sterile technique Levaquin 750mg daily x 3 days. Return to Ed if new symptoms occur. Quality Measures - Quality Measures Quality Measures: Advance Directives, Documentation of Current Medications in Medical Record, Elder Maltreatment Screen and Follow-Up Plan, Screening for High Blood Pressure and F/U Documented - Current Medications Quality Measure: Measure #130: Documentation of Current Medications Documentation of Current Medications: <Current Medications Documented/Reviewed> [G8427] - Blood Pressure Screening Quality Measure: Screening for High Blood Pressure and Follow-Up Documented Does Patient Have Any of the Following: No Blood Pressure Classification: Pre-Hypertensive BP Reading Systolic Measurement: 126 Diastolic Measurement: 60 Screening for High Blood Pressure: < Pre-Hypertensive BP, F/U Documented > [ F1951] Pre-Hypertensive Follow-up Interventions: Follow-up with rescreen every year., Lifestyle modifications. Lifestyle Modification: Weight Reduction, Dietary Approaches to Stop Hypertension (DASH) Eating Plan - Advance Directives Quality Measure: Measure #47: Care Plan Advance Directives Established: No Advance Directives Information Provided To Patient: Already Provided Advance Directives on File: No Living Will: Yes Power of Apple Picker: Yes Advance Care Planning: <Care Plan/Decision Maker Not Decided; Discussed & Documented> [[id number]] - Elder Abuse Suspicion Index Screening: Elder Abuse Suspicion Index Screening Rely on people for bathing, dressing, shopping, banking, etc: No Prevented from getting food, clothes, medication, etc: No Made to feel shamed or threatened by someone: No Forced to sign papers or use money against will: No Feel afraid, touched in ways not wanted or hurt physically: No Poor eye contact, withdrawn, malnourished, cuts or bruises: No Screening Result: Negative result EASI Reference Information: Marilyn ARREOLA, Michael C, Camilo D, Juan Carlos M.Development and validation of a tool to assist physicians identification of elder abuse: The Elder Abuse Suspicion Index (EASI ). Journal of Elder Abuse and Neglect, 2008; 20 (3): 276-300. - Elder Maltreatment Screen Quality Measures: Elder Maltreatment Screen and Follow-Up Plan Elder Maltreatment Screen: <Negative, No Follow-Up Plan Required> [G8715]
[2017-05-30 08:33] LABS: PLATELET ESTIMATE NORMAL (NORMAL); TOXIC GRANULATION 1+
[2017-05-30] MEDS: CEFTRIAXONE SODIUM 1 GM in 0.9 % SODIUM CHLORIDE 100ML 100 ML IVPB SCH (09:09)
[2017-05-30] MEDS: ASPIRIN 81 MG TABEC PO SCH (09:09)
[2017-05-30] MEDS: ENOXAPARIN 40 MG/0.4 ML SYR SQ SCH (09:12)
== END 2017-05-30 12:21 | disposition home or self-care (01) | DRG 700 ==
LOC: ER 11:39 → MEDSURG 15:30
PROVIDERS: ADMIT Internal Medicine; ATTEND Internal Medicine
DX: R50.9 Fever, unspecified (principal); T83.511A Infection and inflammatory reaction due to indwelling urethral catheter, initial encounter; N39.0 Urinary tract infection, site not specified; B96.89 Other specified bacterial agents as the cause of diseases classified elsewhere; R53.81 Other malaise; R51 Headache; N31.9 Neuromuscular dysfunction of bladder, unspecified; Z78.9 Other specified health status; F43.10 Post-traumatic stress disorder, unspecified
CPT/HCPCS: 99285 ×2; 96365; 96366; 96375; 96368; 83605; 86140; 80048; 81001; 85027; 71045; 93005; 93010; J2405; 99223; 99233; 99239; J1650; J1956; J7030

== ENCOUNTER 2018-08-26 07:30 | Emergency (ER) | payer MEDICARE ==
[2018-08-26] MEDS ORDERED: ONDANSETRON HCL IV 4 MG/2 ML VIAL IVP ONE (07:49)
[2018-08-26] MEDS ORDERED: HYDROMORPHONE HCL 2 MG/ML VIAL IVP ONE ×3 (07:49→08:52)
[2018-08-26] MEDS ORDERED: LIDOCAINE UROJECT 10 ML APPL MM ONE (07:49)
[2018-08-26 07:56] LABS: ABSOLUTE NEUTROPHIL COUNT 8.69; BASO % 0.4 % (0-6); GRAN % 77.1 % (47-80); HEMATOCRIT 46.4 % (42.0-52.0); HEMOGLOBIN 15.2 gm/dl (14.0-18.0); LYMPH % 11.7 % (16-45); MEAN CELL VOLUME 92.8 fl (81-97); MEAN CORPUSCULAR HEMOGLOBIN 30.4 pg (27-33); MEAN CORPUSCULAR HGB CONC 32.8 g/dl (32-36); MEAN PLATELET VOLUME 11.1 fl (7.4-10.4); MONO % 8.8 % (0-9); PLATELET COUNT 235 K/uL (130-400); WHITE BLOOD COUNT W/O DIFF 11.3 K/uL (4.2-12.2)
--- NOTE | 2018-08-26 07:56 | Emergency Department Record ---
History of Present Illness - General Chief Complaint: Abdominal Pain Stated Complaint: ABD PAIN/UTI Time Seen by Provider: 08/26/18 07:44 Source: Patient Mode of Arrival: Ambulatory Limitations: No limitations - History of Present Illness Initial Comments: The patient is here due to having LLQ AP for one day. He states the pain is constant and aching. The patient has had no nausea or vomiting but his last BM was 2 days ago. He does have a hx of Neurogenic bladder and does self cath 4 times a day. Recently his urine has been cloudy so he did see his MD doctor who started him on Levaquin. Additionally the patient has had LLQ back pain for 2 weeks since he has been cutting wood. The patient has had 3 prostate surgeries but no other abdominal surgeries. MD Complaint: Abdominal pain Onset/Timin -: Days(s) Location: LLQ Consistency: Constant Improves With: Nothing Worsens With: Nothing - Related Data Allergies Allergy/AdvReac Type Severity Reaction Status Date / Time sulfamethoxazole Allergy Intermediate Rash Verified 05/28/17 11:54 [From Bactrim] trimethoprim [From Bactrim] Allergy Intermediate Rash Verified 05/28/17 11:54 nabumetone [From Relafen] Allergy Mild no idea Verified 05/28/17 11:54 Travel Screening - Travel/Exposure Within Last 30 Days Have you traveled within the last 30 days?: Yes Location Detail:: [place] - Travel/Exposure Within Last Year Have you traveled outside the [place] in the last year?: Yes Location Detail:: [place] - Additonal Travel Details Have you been exposed to anyone with a communicable illness?: No - Travel Symptoms Symptom Screening: None Review of Systems Constitutional: Denies: Chills, Fever Eyes: Denies: Eye discharge ENT: Denies: Congestion Respiratory: Denies: Cough, Dyspnea Cardiovascular: Denies: Chest pain Endocrine: Denies: Fatigue Gastrointestinal: Reports: Abdominal pain. Denies: Diarrhea Genitourinary: Denies: Dysuria Musculoskeletal: Reports: Back pain. Denies: Arthralgia Skin: Denies: Bruising Past Medical History - SOCIAL HISTORY Smoking Status: Never smoker Alcohol Use: None Drug Use: None - RESPIRATORY Hx Respiratory Disorders: No - CARDIOVASCULAR Hx Cardio Disorders: No - NEURO Hx Neuro Disorders: No - GI Hx GI Disorders: Yes Hx Obstructive Bowel: Yes (many yrs ago) - Hx Genitourinary Disorders: Yes Hx UTI: Yes (yr ago) - ENDOCRINE Hx Endocrine Disorders: No - MUSCULOSKELETAL Hx Musculoskeletal Disorders: Yes Comment:: swelling left breast and tender - PSYCH Hx Psych Problems: Yes Comment:: PTSD, [place] vet - HEMATOLOGY/ONCOLOGY Hx Hematology/Oncology Disorders: No Family Medical History Any Significant Family History?: No Hx Diabetes: Mother Physical Exam - General General Appearance: Alert, Oriented x3, Cooperative, Mild distress (due to pain.) - Head Head exam: Atraumatic, Normocephalic - Eye Eye exam: Normal appearance, PERRL - ENT Throat exam: Normal inspection. negative: Tonsillar erythema, Tonsillar exudate - Neck Neck exam: Normal inspection, Full ROM. negative: Tenderness - Respiratory Respiratory exam: Normal lung sounds bilaterally. negative: Respiratory distress - Cardiovascular Cardiovascular Exam: Regular rate, Normal rhythm, Normal heart sounds - GI/Abdominal GI/Abdominal exam: Soft, Normal bowel sounds, Tenderness (There is significant LLQ tenderness.) - Extremities Extremities exam: Normal inspection, Full ROM, Normal capillary refill. negative: Tenderness - Back Back exam: Reports: Normal inspection. Denies: Vertebral tenderness - Neurological Neurological exam: Alert, Normal gait, Oriented X3. negative: Abnormal gait, Altered, Motor sensory deficit Course Vital Signs 08/26/18 07:31 Temperature 98.4 F Pulse Rate 74 Respiratory 20 Rate Blood Pressure 183/96 Pulse Ox 98 - Reevaluation(s) Reevaluation #1: The patient is doing much better at this time. His pain is much better. 08/26/18 9:00 Reevaluation #2: The patient is doing a lot better and his pain is 1/10. He is very comfortable and feels ready to go home. I did discuss the 3 mm L ureter stone with the patient and the need for F/U with urology. I also did discuss the case with Dr. Bob and he agrees with the plan for discharge and F/U later this week. 08/26/18 10:22 Medical Decision Making - Data Complexity MDM Data: Labs Ordered and/or Reviewed, X-Ray Ordered and/or Reviewed - Lab Data Result diagrams: 08/26/18 07:40 08/26/18 07:40 - Radiology Data Radiology results: Report reviewed (CT: 3 mm L ureter stone with mod hydro.) Disposition Disposition: Discharge Clinical Impression: Ureteral stone with hydronephrosis Disposition: Home, Self-Care Condition: (2) Stable Instructions: Renal Colic (ED) Additional Instructions: Please drink plenty of fluid and please see Dr. Flor or another Urologist early next week for recheck. Take Motrin or Bird In Hand for pain and take the Flomax until you pass the stone. Please return to the ER for any worsening pain, fever, or vomiting. Please also take a stool softener as needed. Referrals: JIGAR BOB M.D. [MEDICAL DOCTOR] - Forms: Patient Portal Access Time of Disposition: 10:27 Quality - Quality Measures Quality Measures: N/A - Blood Pressure Screening View Details: Yes Does Patient Have Any of the Following: No Blood Pressure Classification: Hypertensive Reading Systolic Measurement: 183 Diastolic Measurement: 96 Screening for High Blood Pressure: < First Hypertensive BP, F/U Documented > [ G8950] First Hypertensive Follow-up Interventions: Referral to alternative/primary care provider.
[2018-08-26 08:07] LABS: BLOOD UREA NITROGEN 20 mg/dL (8-23); EST GLOMERULAR FILTRATION RATE > 60 mL/min
[2018-08-26 08:08] LABS: LIPASE 30 U/L (13-60); TOTAL PROTEIN 7.6 g/dL (6.6-8.7)
[2018-08-26 08:10] LABS: GLUCOSE,RANDOM 121 mg/dL (74-109)
[2018-08-26 08:12] LABS: ALBUMIN 4.7 g/dL (4.0-5.0); ALT/SGPT 25 U/L (<41); AST/SGOT 22 U/L (10.0-50.0)
[2018-08-26] MEDS ORDERED: 0.9 % SODIUM CHLORIDE 1,000 ML BAG IV ONE (08:12)
[2018-08-26 08:13] LABS: ALKALINE PHOSPHATASE 115 U/L (40-129)
[2018-08-26 08:15] LABS: BILIRUBIN,DIRECT < 0.2 mg/dL (0-0.3)
[2018-08-26 08:22] LABS: URINE APPEARANCE CLEAR; URINE BILIRUBIN NEGATIVE (NEGATIVE); URINE BLOOD LARGE (NEGATIVE); URINE COLOR YELLOW; URINE GLUCOSE (UA) NEGATIVE (NEGATIVE); URINE KETONE NEGATIVE (NEGATIVE); URINE LEUKOCYTE ESTERASE TRACE (NEGATIVE); URINE NITRITE NEGATIVE (NEGATIVE); URINE PROTEIN NEGATIVE (NEGATIVE); URINE UROBILINOGEN 0.2 E.U./dL (0.20 - 1.00)
[2018-08-26 08:34] LABS: URINE RBC 0 - 2 (NONE SEEN)
[2018-08-26 08:35] LABS: URINE AMORPHOUS SEDIMENT 1+; URINE MUCUS MODERATE
--- NOTE | 2018-08-27 08:00 | CT ANGIOGRAM REPORT ---
EXAM: CT ANGIOGRAM ABDOMEN/PELVIS CTA HISTORY: ABDOMINAL PAIN WITH SEVERE BACK PAIN. TECHNIQUE: CT angiography of the abdomen and pelvis was performed with and without intravenous contrast following the bolus administration of 100 mL of Omnipaque-300. Additional coronal and sagittal maximum intensity projection reformatted images were performed on an independent workstation under concurrent supervision. COMPARISON: None. FINDINGS: There is mild dependent atelectasis at the lung bases. The lung bases are otherwise clear. A small hiatal hernia is present. The liver, gallbladder, biliary tree, pancreas, spleen, and adrenal glands are normal. There is a 3 mm calculus within the left ureterovesical junction resulting in moderate hydronephrosis. There are two punctate 1 mm nonobstructing stones at the upper pole of the left kidney. Small left parapelvic renal cysts are present. Tiny cortical cysts are noted within both kidneys. The right kidney is otherwise unremarkable. There is no right hydronephrosis or calculus. The abdominal aorta is normal in caliber. There is no dissection. There is minor narrowing at the origin of the celiac trunk. The superior mesenteric artery is normal in caliber. The renal artery origins are normal in caliber. Both renal arteries have a string of beads-appearance within their mid to distal portions. This pattern suggests underlying fibromuscular dysplasia, which can result in renal vascular hypertension. No severe stenosis is identified. The inferior mesenteric artery is normal as are the iliac arteries. There are multiple nonenlarged and a few borderline enlarged para-aortic lymph nodes. The largest on the left is located just below the level of the renal artery and measures 1.2 x 1.6 cm. A 1.1 x 1.6 cm lymph node is present within the anterior interaortocaval region just above the level of the aortic bifurcation. Nonenlarged pelvic and inguinal region lymph nodes are present. The urinary bladder is decompressed with a Dillon catheter. The wall appears mildly thickened, which is likely due to the decompressed state. Radiation seed implants are present within the prostate. Degenerative changes are present within the spine and hips. Nonspecific sclerotic area is present within the left iliac bone and likely represents a bone island. No definite osteoblastic or osteolytic process is identified. There are a few diverticula within the sigmoid colon with no evidence for acute diverticulitis. The bowel and mesentery are otherwise normal. There are no focal inflammatory changes. There is no pneumoperitoneum or ascites. IMPRESSION: 1. A 3 MM CALCULUS WITHIN THE LEFT URETEROVESICAL JUNCTION RESULTING IN MODERATE HYDRONEPHROSIS. 2. NO EVIDENCE FOR AORTIC ANEURYSM OR DISSECTION. 3. THE RENAL ARTERIES HAVE A STRING OF BEADS-APPEARANCE WITH ALTERNATING AREAS OF MILD NARROWING AND DILATION. THIS IS SUGGESTIVE OF UNDERLYING FIBROMUSCULAR DYSPLASIA, WHICH CAN BE A SOURCE OF RENAL VASCULAR HYPERTENSION. 4. BORDERLINE TO MILDLY ENLARGED RETROPERITONEAL LYMPH NODES, DESCRIBED. 5. ADDITIONAL CHRONIC FINDINGS ABOVE. JOB NUMBER: [id number] [facility]
== END 2018-08-26 10:48 | disposition home or self-care (01) ==
LOC: ER 07:30
DX: N13.2 Hydronephrosis with renal and ureteral calculous obstruction (principal); R10.32 Left lower quadrant pain; M54.2 Cervicalgia
CPT/HCPCS: 51702; 99284 ×2; 96374; 96375; 83690; 85025; 80076; 80048; 81001; 74174; Q9967; J2405; J1170; J7030

== ENCOUNTER 2018-12-13 23:30 | Inpatient (IN) | payer MEDICARE ==
--- NOTE | 2018-12-13 23:42 | Emergency Department Record ---
History of Present Illness - General Stated Complaint: POSSIBLE UTI Time Seen by Provider: 12/13/18 23:31 Source: Patient, Family Mode of Arrival: Ambulatory Limitations: No limitations - History of Present Illness Initial Comments: 73 yo male presents not feeling well throughout the day. He states he has had body aches, chills, fevers, weakness, headaches, cough throughout the day. No neck pain, no sore throat. The cough is mild and non productive. He does states he self caths his bladder 5 times daily due to a neurogenic bladder. He has had UTI many times in the past. No rash. No back or abdominal pain. Tmax was 101 at 11pm per patient and . He did not take anything for fever prior to arrival. MD Complaint: Fever, Weakness -: Hour(s) Temperature Source: Oral Context: Other (Self caths 5 times daily) Associated Symptoms: Chills, Cough, Headache, Other (weak, chills) Treatments Prior to Arrival: Other - Related Data Allergies Allergy/AdvReac Type Severity Reaction Status Date / Time sulfamethoxazole Allergy Intermediate Rash Verified 12/13/18 23:38 [From Bactrim] trimethoprim [From Bactrim] Allergy Intermediate Rash Verified 12/13/18 23:38 nabumetone [From Relafen] Allergy Mild no idea Verified 12/13/18 23:38 Review of Systems Constitutional: Reports: Chills, Fever, Malaise, Weakness Eyes: Denies: Eye discharge, Eye pain, Photophobia, Vision change ENT: Denies: Congestion, Dental pain, Ear pain, Epistaxis, Throat pain Respiratory: Reports: Cough, Dyspnea. Denies: Hemoptysis, Stridor, Wheezes Cardiovascular: Reports: Dyspnea on exertion. Denies: Chest pain, Edema, Palpitations, Syncope Endocrine: Reports: Fatigue. Denies: Polydipsia, Polyuria Gastrointestinal: Denies: Abdominal pain, Diarrhea, Nausea, Vomiting Genitourinary: Reports: Retention, Other. Denies: Hematuria Musculoskeletal: Denies: Arthralgia, Back pain, Neck pain Skin: Denies: Bruising, Change in color, Rash Neurological: Reports: Headache. Denies: Abnormal gait, Confusion, Numbness, Seizure, Tingling, Tremors, Vertigo, Weakness Psychiatric: Denies: Anxiety Hematological/Lymphatic: Denies: Easy bleeding, Easy bruising Past Medical History - SOCIAL HISTORY Smoking Status: Never smoker Drug Use: None - RESPIRATORY Hx Respiratory Disorders: No - CARDIOVASCULAR Hx Cardio Disorders: No - NEURO Hx Neuro Disorders: No - GI Hx GI Disorders: Yes Hx Obstructive Bowel: Yes (many yrs ago) - Hx Genitourinary Disorders: Yes Hx UTI: Yes (yr ago) - ENDOCRINE Hx Endocrine Disorders: No - MUSCULOSKELETAL Hx Musculoskeletal Disorders: Yes Comment:: swelling left breast and tender - PSYCH Hx Psych Problems: Yes Comment:: PTSD, [place] vet - HEMATOLOGY/ONCOLOGY Hx Hematology/Oncology Disorders: No Family Medical History Hx Diabetes: Mother Physical Exam - General General Appearance: Alert, Oriented x3, Cooperative, No acute distress, Other (Conversational, no confusion, clear thoughts and speech) Limitations: No limitations - Head Head exam: Atraumatic, Normocephalic, Normal inspection - Eye Eye exam: Normal appearance, PERRL. negative: Conjunctival injection, Scleral icterus - ENT ENT exam: Normal exam, Mucous membranes moist, Normal orophraynx. negative: Mucous membranes dry Ear exam: Normal external inspection Nasal Exam: Normal inspection Mouth exam: Normal external inspection Teeth exam: Normal inspection Throat exam: Normal inspection. negative: Tonsillar erythema, Tonsillomegaly, Tonsillar exudate, R peritonsillar mass, L peritonsillar mass - Neck Neck exam: Normal inspection, Full ROM, Other (supple, full range without limitation). negative: Lymphadenopathy, Meningismus, Tenderness - Respiratory Respiratory exam: Normal lung sounds bilaterally. negative: Accessory muscle use, Prolonged expiratory, Rhonchi, Stridor, Wheezes - Cardiovascular Cardiovascular Exam: Normal rhythm, Tachycardia. negative: Regular rate, Irregular rhythm Peripheral Pulses: 2+: Radial (R), Radial (L) - GI/Abdominal GI/Abdominal exam: Soft. negative: Distended, Guarding, Tenderness - Rectal Rectal exam: Deferred - exam: Deferred - Extremities Extremities exam: Normal inspection - Back Back exam: Denies: CVA tenderness (R), CVA tenderness (L) - Neurological Neurological exam: Alert, Normal gait, Oriented X3. negative: Abnormal gait, Altered - Psychiatric Psychiatric exam: Normal affect, Normal mood - Skin Skin exam: Dry, Intact, Normal color, Warm Course - Reevaluation(s) Reevaluation #1: 12/14/18 00:17 The CBC was reviewed The WBC count is 16.6 The CXR was reviewed. My preliminary report is no acute process or infiltrate. 12/14/18 00:22 No acute significant abnormality on the CMP with mild increase in Glucose at 192 12/14/18 00:25 12/14/18 00:38 The urine is consistent with possible UTI A dose of Rocephin will be given and reassess patient. 12/14/18 00:41 The patient states he is very weak and does not feel well enough to be home He will be admitted on IV fluids and antibiotics with cultures pending Medical Decision Making - Lab Data Result diagrams: 12/13/18 23:50 12/13/18 23:50 Disposition Disposition: Admit Clinical Impression: Urinary tract infection associated with catheterization of urinary tract Qualifiers: Indwelling urinary catheter type: unspecified Encounter type: initial encounter Qualified Code(s): T83.511A - Infection and inflammatory reaction due to indwelling urethral catheter, initial encounter Disposition: Still a Patient at [facility] Decision to Admit: Admit from ER Decision to Admit Date: 12/14/18 Decision to Admit Time: 00:42 Condition: (1) Good Time of Disposition: 00:42 Quality - Quality Measures Quality Measures: N/A - Blood Pressure Screening Does Patient Have Any of the Following: No Blood Pressure Classification: Pre-Hypertensive BP Reading Systolic Measurement: 137 Diastolic Measurement: 87 Screening for High Blood Pressure: < Pre-Hypertensive BP, F/U Documented > [G8950] Pre-Hypertensive Follow-up Interventions: Referral to alternative/primary care provider.
[2018-12-13] MEDS ORDERED: 0.9 % SODIUM CHLORIDE 1000ML 1,000 ML IV ONE (23:43)
[2018-12-13] MEDS ORDERED: ACETAMINOPHEN 1,000 MG/100 ML BTL IVPB ONE (23:45)
[2018-12-14 00:08] LABS: ABSOLUTE NEUTROPHIL COUNT 13.75; HEMATOCRIT 43.1 % (42.0-52.0); HEMOGLOBIN 14.1 gm/dl (14.0-18.0); MEAN CELL VOLUME 93.3 fl (81-97); MEAN CORPUSCULAR HEMOGLOBIN 30.5 pg (27-33); MEAN CORPUSCULAR HGB CONC 32.7 g/dl (32-36); PLATELET COUNT 219 K/uL (130-400); RED BLOOD COUNT 4.62 M/uL (4.40-5.70); RED CELL DISTRIBUTION WIDTH 13.1 % (11.5-14.5); WHITE BLOOD COUNT W/O DIFF 16.6 K/uL (4.2-12.2)
[2018-12-14 00:15] LABS: BLOOD UREA NITROGEN 24 mg/dL (8-23); CREATININE 0.9 mg/dL (0.7-1.2); EST GLOMERULAR FILTRATION RATE > 60 mL/min
[2018-12-14 00:16] LABS: TOTAL PROTEIN 6.9 g/dL (6.6-8.7)
[2018-12-14 00:18] LABS: GLUCOSE,RANDOM 192 mg/dL (74-109)
[2018-12-14 00:21] LABS: ALB/GLOB RATIO 1.8 (1.1-1.8); ALBUMIN 4.4 g/dL (4.0-5.0); ALKALINE PHOSPHATASE 95 U/L (40-129); ALT/SGPT 26 U/L (<41); AST/SGOT 20 U/L (10.0-50.0)
[2018-12-14 00:26] LABS: URINE APPEARANCE SL CLOUDY; URINE BILIRUBIN NEGATIVE (NEGATIVE); URINE BLOOD MODERATE (NEGATIVE); URINE COLOR YELLOW; URINE GLUCOSE (UA) NEGATIVE (NEGATIVE); URINE KETONE NEGATIVE (NEGATIVE); URINE LEUKOCYTE ESTERASE TRACE (NEGATIVE); URINE NITRITE POSITIVE (NEGATIVE); URINE PROTEIN NEGATIVE (NEGATIVE); URINE UROBILINOGEN 0.2 E.U./dL (0.20 - 1.00)
[2018-12-14 00:34] LABS: URINE BACTERIA 4+
[2018-12-14] MEDS ORDERED: CEFTRIAXONE 1GM/50ML BAG 1 GM/50 ML BAG IVPB ONE (00:38)
[2018-12-14] MEDS ORDERED: CEFTRIAXONE 1GM/50ML BAG 1 GM/50 ML BAG IVPB SCH ×2 (01:51→11:00)
[2018-12-14] MEDS ORDERED: ONDANSETRON HCL IV 4 MG/2 ML VIAL IVP PRN (01:51)
[2018-12-14] MEDS ORDERED: IBUPROFEN 400 MG TABLET PO PRN (01:51)
[2018-12-14] MEDS ORDERED: POTASSIUM CHLORIDE/D5-0.9%NACL 20 MEQ/1,000 ML BAG IV SCH (01:51)
[2018-12-14] MEDS ORDERED: ACETAMINOPHEN 1,000 MG/100 ML BTL IVPB SCH ×2 (01:51→06:00)
[2018-12-14 07:00] LABS: ABSOLUTE NEUTROPHIL COUNT 9.69; BASO % 0.2 % (0-6); EOS % 0.9 % (0-6); GRAN % 70.2 % (47-80); HEMATOCRIT 42.5 % (42.0-52.0); HEMOGLOBIN 13.7 gm/dl (14.0-18.0); LYMPH % 18.6 % (16-45); MEAN CORPUSCULAR HEMOGLOBIN 30.3 pg (27-33); MEAN CORPUSCULAR HGB CONC 32.2 g/dl (32-36); MEAN PLATELET VOLUME 11.1 fl (7.4-10.4); MONO % 10.1 % (0-9); PLATELET COUNT 195 K/uL (130-400); RED BLOOD COUNT 4.52 M/uL (4.40-5.70); RED CELL DISTRIBUTION WIDTH 13.3 % (11.5-14.5); WHITE BLOOD COUNT W/O DIFF 13.8 K/uL (4.2-12.2)
--- NOTE | 2018-12-14 08:01 | RADIOLOGY REPORT ---
EXAM: CHEST, TWO VIEWS HISTORY: COUGH AND FEVER BEGINNING TODAY. SHORTNESS OF BREATH. TECHNIQUE: Upright PA and lateral views of the chest were obtained. Comparison: Chest one view dated 05/28/17. FINDINGS: The heart is not enlarged and the pulmonary vasculature is nondilated. Evaluation of the upper lungs on the frontal view is somewhat limited by overpenetration. No confluent air space opacity is seen. Minimal linear scarring versus atelectasis in the lateral left lung base. Bridging marginal osteophytes are scattered throughout the visualized spine. No acute osseous abnormality demonstrated. IMPRESSION: NO CONVINCING RADIOGRAPHIC EVIDENCE OF ACUTE CARDIOPULMONARY DISEASE. MINOR LINEAR SCARRING VERSUS ATELECTASIS IN THE LATERAL LEFT LUNG BASE. JOB NUMBER: [id number] [facility]
[2018-12-14 09:14] LABS: BLOOD UREA NITROGEN 17 mg/dL (8-23); CREATININE 0.8 mg/dL (0.7-1.2); EST GLOMERULAR FILTRATION RATE > 60 mL/min
[2018-12-14 09:17] LABS: GLUCOSE,RANDOM 117 mg/dL (74-109)
--- NOTE | 2018-12-14 09:47 | History & Physical ---
History of Present Illness - Date of Service Date of Service for History & Physical: 12/14/18 - History of Present Illness Admitting Diagnosis: Urinary Tract Infection, weakness History of Present Illness: 73 y/o male presented to ED with 1 day hx of fevers (tmax 101), malaise, weakness, headache and cough. Denied neck pain or sore throat. Cough was mild and non-productive. He does self-cath himself 5 times daily due to neurogenic bladder. Does have hx of recurrent UTI. Denies any abdominal pain. Has had an acute change in behavior prior to arrival reported by which is usual when he has a UTI. PMX includes obstructive bowel, UTI, neurogenic bladder, PTSD due to [place] war While in ED WBCm 16.6. BUN 24, cr nl, U/A + nitrites and 4+ bacterial. BC and urine culture pending. CXR no active process. Admitted for observation of weakness due to infectious process, IV antibiotics and IV fluids. 12/14/18 1000- sitting in bed comfortably. reports he is feeling nearly to baseline function this am. Has walked to the BR without issue, stood to self cath with no falling or loss of balance. Reports he still feels "blah" but nowhere near what he felt like yesterday. No fevers, chillls, abdominal pain since admission. He reports his neurogenic bladder was discovered in 2015 after having hematuria. He was worked up by PCP at the time (Viridiana) had CT aBdomen/pelvis and found to have a very distended bladder. He was completely asymptomatic at that time except for the hematuria. He was further worked up by Dr Kearney, was told the "bands" that help the bladder compress were damaged. Did have a bladder lift and ureteral stent placed but did not improve the urinary retention. Care was transferred to [facility] who currently manages his urological care. Does not take a daily suppressive [facility] [place] Urology: [facility] Urology Travel Screening - Travel/Exposure Within Last 30 Days Have you traveled within the last 30 days?: No - Travel/Exposure Within Last Year Have you traveled outside the [place] in the last year?: No Location Detail:: 04/16 Cruise [place] - Additonal Travel Details Have you been exposed to anyone with a communicable illness?: No - Travel Symptoms Symptom Screening: None Review of Systems Constitutional: Reports: Chills, Fever, Malaise, Weakness Eyes: Denies: Eye discharge, Eye pain, Photophobia, Vision change ENT: Denies: Congestion, Dental pain, Ear pain, Epistaxis, Throat pain Respiratory: Reports: Cough, Dyspnea. Denies: Hemoptysis, Stridor, Wheezes Cardiovascular: Reports: Dyspnea on exertion. Denies: Chest pain, Edema, Palpitations, Syncope Endocrine: Reports: Fatigue. Denies: Polydipsia, Polyuria Gastrointestinal: Denies: Abdominal pain, Diarrhea, Nausea, Vomiting Genitourinary: Reports: Retention, Other. Denies: Hematuria Musculoskeletal: Denies: Arthralgia, Back pain, Neck pain Skin: Denies: Bruising, Change in color, Rash Neurological: Reports: Headache. Denies: Abnormal gait, Confusion, Numbness, Seizure, Tingling, Tremors, Vertigo, Weakness Psychiatric: Denies: Anxiety Hematological/Lymphatic: Denies: Easy bleeding, Easy bruising Past Medical History - SOCIAL HISTORY Smoking Status: Never smoker Alcohol Use: Rare Drug Use: None - RESPIRATORY Hx Respiratory Disorders: No - CARDIOVASCULAR Hx Cardio Disorders: No - NEURO Hx Neuro Disorders: No - GI Hx GI Disorders: Yes Hx Obstructive Bowel: Yes (many yrs ago) - Hx Genitourinary Disorders: Yes Hx UTI: Yes (yr ago) - ENDOCRINE Hx Endocrine Disorders: No - MUSCULOSKELETAL Hx Musculoskeletal Disorders: Yes Comment:: swelling left breast and tender - PSYCH Hx Psych Problems: Yes Comment:: PTSD, [place] vet - HEMATOLOGY/ONCOLOGY Hx Hematology/Oncology Disorders: No Family Medical History Any Significant Family History?: No Hx Diabetes: Mother H&P Meds/Allergies - Allergies Allergies: Allergies Allergy/AdvReac Type Severity Reaction Status Date / Time sulfamethoxazole Allergy Intermediate Rash Verified 12/13/18 23:38 [From Bactrim] trimethoprim [From Bactrim] Allergy Intermediate Rash Verified 12/13/18 23:38 nabumetone [From Relafen] Allergy Mild no idea Verified 12/13/18 23:38 - Active Medications Active Medications: Current Medications Aspirin (Ecotrin (Ec)) 81 mg PO DAILY [facility] Atorvastatin Calcium (Lipitor) 40 mg PO QHS [facility] Potassium Chloride/Dextrose/Sod Cl () 20 meq in 1,000 mls @ 100 mls/hr IV Q8H [facility] Last Admin: 12/14/18 03:52 Dose: 100 mls/hr Documented by: Acetaminophen (Ofirmev) 1,000 mg in 100 mls @ 400 mls/hr IVPB Q6H [facility] Last Infusion: 12/14/18 06:10 Dose: Infused Documented by: CEFTRIAXONE 1GM/50ML BAG (Ceftriaxone 1 Gm-D5w Bag) 1 gm in 50 mls @ 100 mls/hr IVPB Q12H [facility] Ibuprofen (Motrin 400mg) 400 mg PO Q8H PRN PRN Reason: PAIN - MILD (1-4) Multivitamins/Minerals (Centrum) 1 tab PO DAILY [facility] Ondansetron HCl (Zofran) 4 mg IVP Q4H PRN PRN Reason: NAUSEA Physical Exam - Vital Signs Vital Signs: Vital Signs - Last 24 Hrs Temp Pulse Pulse Resp BP BP Pulse Ox 12/14/18 08:00 97.7 F 66 16 146/71 98 12/14/18 02:37 16 12/14/18 02:10 97.8 F 70 16 144/67 96 12/14/18 02:07 98.8 F 82 20 140/82 93 L 12/14/18 00:59 98.8 F 12/14/18 00:45 80 20 142/87 93 L 12/13/18 23:38 98.9 F 109 H 19 137/87 97 - General General Appearance: Alert, Oriented x3, Cooperative, No acute distress Limitations: No limitations - Head Head exam: Atraumatic, Normocephalic, Normal inspection - Eye Eye exam: Normal appearance, PERRL. negative: Conjunctival injection, Scleral icterus - ENT ENT exam: Normal exam, Mucous membranes moist, Normal orophraynx. negative: Mucous membranes dry Ear exam: Normal external inspection Nasal Exam: Normal inspection Mouth exam: Normal external inspection Teeth exam: Normal inspection Throat exam: Normal inspection. negative: Tonsillar erythema, Tonsillomegaly, Tonsillar exudate, R peritonsillar mass, L peritonsillar mass - Neck Neck exam: Normal inspection, Full ROM, Other (supple, full range without limitation). negative: Lymphadenopathy, Meningismus, Tenderness - Respiratory Respiratory exam: Normal lung sounds bilaterally. negative: Accessory muscle use, Prolonged expiratory, Rhonchi, Stridor, Wheezes - Cardiovascular Cardiovascular Exam: Normal rhythm, Tachycardia. negative: Regular rate, Irregular rhythm Peripheral Pulses: 2+: Radial (R), Radial (L) - GI/Abdominal GI/Abdominal exam: Soft, Normal bowel sounds. negative: Distended, Guarding, Tenderness - Rectal Rectal exam: Deferred - exam: Deferred - Extremities Extremities exam: Normal inspection - Back Back exam: Denies: CVA tenderness (R), CVA tenderness (L) - Neurological Neurological exam: Alert, Normal gait, Oriented X3. negative: Abnormal gait, Altered - Psychiatric Psychiatric exam: Normal affect, Normal mood - Skin Skin exam: Dry, Intact, Normal color, Warm Results - Labs Result Diagrams: 12/14/18 06:30 12/14/18 08:57 Labs Last 24 Hours: Laboratory Results - last 24 hr 12/13/18 12/13/18 12/13/18 23:50 23:50 Unknown WBC 16.6 H RBC 4.62 Hgb 14.1 Hct 43.1 MCV 93.3 MCH 30.5 MCHC 32.7 RDW 13.1 Plt Count 219 MPV 11.0 H Gran % Neutrophils % 82.0 H Band Neutrophils % 2.0 Lymphocytes % Monocytes % Eosinophils % Not Reportable Basophils % Not Reportable Absolute Neutrophils 13.75 Lymphocytes 7.0 L Monocytes 9.0 Sodium 139 Potassium 3.9 Chloride 102 Carbon Dioxide 24.0 Anion Gap 13.0 BUN 24 H Creatinine 0.9 Estimated GFR > 60 Random Glucose 192 H Calcium 9.5 Total Bilirubin 0.40 AST 20 ALT 26 Alkaline Phosphatase 95 Total Protein 6.9 Albumin 4.4 Globulin 2.5 Albumin/Globulin Ratio 1.8 Urine Color Yellow Urine Appearance Sl cloudy Urine pH 6.0 Ur Specific Mathews 1.020 Urine Protein Negative Urine Glucose (UA) Negative Urine Ketones Negative Urine Blood Moderate Urine Nitrite Positive H Urine Bilirubin Negative Urine Urobilinogen 0.2 Ur Leukocyte Esterase Trace H Urine RBC 3 - 6 Urine WBC 6 - 10 Urine Bacteria 4+ 12/14/18 12/14/18 06:30 08:57 WBC 13.8 H RBC 4.52 Hgb 13.7 L Hct 42.5 MCV 94.0 MCH 30.3 MCHC 32.2 RDW 13.3 Plt Count 195 MPV 11.1 H Gran % 70.2 Neutrophils % Band Neutrophils % Lymphocytes % 18.6 Monocytes % 10.1 H Eosinophils % 0.9 Basophils % 0.2 Absolute Neutrophils 9.69 Lymphocytes Monocytes Sodium 141 Potassium 3.8 Chloride 104 Carbon Dioxide 27.0 Anion Gap 10.0 BUN 17 Creatinine 0.8 Estimated GFR > 60 Random Glucose 117 H Calcium 8.8 Total Bilirubin AST ALT Alkaline Phosphatase Total Protein Albumin Globulin Albumin/Globulin Ratio Urine Color Urine Appearance Urine pH Ur Specific Mathews Urine Protein Urine Glucose (UA) Urine Ketones Urine Blood Urine Nitrite Urine Bilirubin Urine Urobilinogen Ur Leukocyte Esterase Urine RBC Urine WBC Urine Bacteria - Imaging and Cardiology CT scan - abdomen Status: Report reviewed (no acute process) VTE H&P Assessment - Risk for VTE Risk for VTE: Yes Risk Level: Moderate Risk Assessment Date: 12/14/18 Risk Assessment Time: 09:47 VTE Orders Placed or Will Be Placed: Yes Plan - Inpatient Certification Inpatient Certification: Admit to inpatient care: Based on my medical assessment, after consideration of patient's risk factors (age, co-morbidities and patient presenting symptoms and acuity), I expect that this patient will remain in the hospital greater than or equal to two midnights and that the services needed warrant inpatient care because: Patient Risk Factors: [advanced age, recurrent UTI, weakness] Estimated length of stay: [48-72 hours] The patient may reasonably be expected to be discharged or transferred to a hospital within 96 hours after admission to [facility]. Services needed: [Nursing, IV fluids, IV antibiotics] Post hospital care (if known): [] I certify that my determination is in accordance with my understanding of Medicare requirements for reasonable and necessary inpatient services. 12/14/18 09:47 - Detailed Diagnosis and Plan (1) Urinary tract infection associated with catheterization of urinary tract Current Visit: Yes Status: Acute Qualifiers: Indwelling urinary catheter type: unspecified Encounter type: initial encounter Qualified Code(s): T83.511A - Infection and inflammatory reaction due to indwelling urethral catheter, initial encounter; N39.0 - Urinary tract infection, site not specified Base Code: T83.511A - I/I REACT D/T INDWELLING URETHRAL CATHETER, INIT; N39.0 - URINARY TRACT INFECTION, SITE NOT SPECIFIED Comment: 12/14/18 - WBC 16.6 --> 13.8, cultures still pending. - IV Rocephin 1gm - D5 with K changed Nacl 0.9% @ 80mL/hr (lytes normal), Acetaminophen Q4H PRN - Repeat lytes and cbc w/ diff in the morning - cont straight cath PRN, compliance monitor (2) Weakness Current Visit: Yes Status: Acute Base Code: R53.1 - WEAKNESS Comment: 12/14/18 - Likely infection related - If feeling much better today, back to nearly baseline function - No need for PT/OT (3) Neurogenic dysfunction of the urinary bladder Current Visit: No Status: Acute Base Code: N31.9 - NEUROMUSCULAR DYSFUNCTION OF BLADDER, UNSPECIFIED Comment: 12/14/18 - straight cath per usual schedule (4) DVT prophylaxis Current Visit: No Status: Acute Base Code: [id number] - Comment: 12/14/18 - encouraged ambulation and sitting up at bedside - Lovenox 40mg daily - SCDs while in bed (5) Full code status Current Visit: No Status: Acute Base Code: Z78.9 - OTHER SPECIFIED HEALTH STATUS Comment: FULL CODE
[2018-12-14] MEDS ORDERED: 0.9 % SODIUM CHLORIDE 1000ML 1,000 ML IV PRN (09:49)
[2018-12-14] MEDS ORDERED: MULTIVITAMINS/MINERALS TABLET PO SCH (10:00)
[2018-12-14] MEDS ORDERED: ENOXAPARIN 40 MG/0.4 ML SYR SQ SCH (10:00)
[2018-12-14] MEDS ORDERED: ASPIRIN 81 MG TABEC PO SCH (10:00)
--- NOTE | 2018-12-14 11:22 | Discharge Summary ---
Providers Discharge Summary Date: 12/14/18 Date of admission: 12/14/18 01:41 Attending physician: KARAN PHIPPS Physical Exam - Vital Signs Vital Signs: Vital Signs - Last 24 Hrs Temp Pulse Pulse Resp BP BP Pulse Ox 12/14/18 08:00 97.7 F 66 16 146/71 98 12/14/18 02:37 16 12/14/18 02:10 97.8 F 70 16 144/67 96 12/14/18 02:07 98.8 F 82 20 140/82 93 L 12/14/18 00:59 98.8 F 12/14/18 00:45 80 20 142/87 93 L 12/13/18 23:38 98.9 F 109 H 19 137/87 97 - General General Appearance: Alert, Oriented x3, Cooperative, No acute distress Limitations: No limitations - Head Head exam: Atraumatic, Normocephalic, Normal inspection - Eye Eye exam: Normal appearance, PERRL. negative: Conjunctival injection, Scleral icterus - ENT ENT exam: Normal exam, Mucous membranes moist, Normal orophraynx. negative: Mucous membranes dry Ear exam: Normal external inspection Nasal Exam: Normal inspection Mouth exam: Normal external inspection Teeth exam: Normal inspection Throat exam: Normal inspection. negative: Tonsillar erythema, Tonsillomegaly, Tonsillar exudate, R peritonsillar mass, L peritonsillar mass - Neck Neck exam: Normal inspection, Full ROM, Other (supple, full range without limitation). negative: Lymphadenopathy, Meningismus, Tenderness - Respiratory Respiratory exam: Normal lung sounds bilaterally. negative: Accessory muscle use, Prolonged expiratory, Rhonchi, Stridor, Wheezes - Cardiovascular Cardiovascular Exam: Normal rhythm, Tachycardia. negative: Regular rate, Irregular rhythm Peripheral Pulses: 2+: Radial (R), Radial (L) - GI/Abdominal GI/Abdominal exam: Soft, Normal bowel sounds. negative: Distended, Guarding, Tenderness - Rectal Rectal exam: Deferred - exam: Deferred - Extremities Extremities exam: Normal inspection - Back Back exam: Denies: CVA tenderness (R), CVA tenderness (L) - Neurological Neurological exam: Alert, Normal gait, Oriented X3. negative: Abnormal gait, Altered - Psychiatric Psychiatric exam: Normal affect, Normal mood - Skin Skin exam: Dry, Intact, Normal color, Warm Hospitalization - Hospitalization Admission Diagnosis: Urinary Tract Infection, weakness - Problem List/Discharge Diagnosis (1) Urinary tract infection associated with catheterization of urinary tract Current Visit: Yes Status: Acute Discharge Diagnosis: Indwelling urinary catheter type: unspecified Encounter type: initial encounter Qualified Code(s): T83.511A - Infection and inflammatory reaction due to indwelling urethral catheter, initial encounter; N39.0 - Urinary tract infection, site not specified Base Code: T83.511A - I/I REACT D/T INDWELLING URETHRAL CATHETER, INIT; N39.0 - URINARY TRACT INFECTION, SITE NOT SPECIFIED Comment: 12/14/18 - WBC 16.6 --> 13.8, cultures still pending. - IV Rocephin 1gm - Clinically improved today - cont straight cath PRN - Stable for discharge, follow up with [facility] to discuss possible supressive therapy (2) Weakness Current Visit: Yes Status: Acute Base Code: R53.1 - WEAKNESS Comment: 12/14/18 - Likely infection related - If feeling much better today, back to nearly baseline function - No need for PT/OT (3) Neurogenic dysfunction of the urinary bladder Current Visit: No Status: Acute Base Code: N31.9 - NEUROMUSCULAR DYSFUNCTION OF BLADDER, UNSPECIFIED Comment: 12/14/18 - straight cath per usual schedule (4) DVT prophylaxis Current Visit: No Status: Acute Base Code: [id number] - Comment: 12/14/18 - encouraged ambulation and sitting up at bedside - Lovenox 40mg daily - SCDs while in bed (5) Full code status Current Visit: No Status: Acute Base Code: Z78.9 - OTHER SPECIFIED HEALTH STATUS Comment: FULL CODE - Hospitalization Course Disposition: Home, Self-Care Hospital Course: 73 y/o male presented to ED with 1 day hx of fevers (tmax 101), malaise, weakness, headache and cough. Denied neck pain or sore throat. Cough was mild and non-productive. He does self-cath himself 5 times daily due to neurogenic bladder. Does have hx of recurrent UTI. Denies any abdominal pain. Has had an acute change in behavior prior to arrival reported by which is usual when he has a UTI. PMX includes obstructive bowel, UTI, neurogenic bladder, PTSD due to [place] While in ED WBCm 16.6. BUN 24, cr nl, U/A + nitrites and 4+ bacterial. BC and urine culture pending. CXR no active process. Admitted for observation of weakness due to infectious process, IV antibiotics and IV fluids. 12/14/18 1000- sitting in bed comfortably. reports he is feeling nearly to baseline function this am. Has walked to the BR without issue, stood to self cath with no falling or loss of balance. Reports he still feels "blah" but nowhere near what he felt like yesterday. No fevers, chillls, abdominal pain since admission. He reports his neurogenic bladder was discovered in 2015 after having hematuria. He was worked up by PCP at the time (Viridiana) had CT aBdomen/pelvis and found to have a very distended bladder. He was completely asymptomatic at that time except for the hematuria. He was further worked up by Dr Kearney, was told the "bands" that help the bladder compress were damaged. Did have a bladder lift and ureteral stent placed but did not improve the urinary retention. Care was transferred to [facility] who currently manages his urological care. Does not take a daily suppressive. Significant clinical improvement this am, is ready for discharge home with . Has had stable gait, no falls or near misses. Recommend follow up with [facility] to discuss possible suppressive therapy. Will send home with fluoroquinolone as was susceptible to base on last urine culture 05/2018 PCP: [facility] [place] Urology: [facility] Procedures: Imaging and X-Rays 12/13/18 23:39 CHEST 2 VIEWS [RAD] Stat Abnormal Labs: Abnormal Lab Results 12/13/18 12/13/18 12/13/18 Range/Units 23:50 23:50 Unknown WBC 16.6 H (4.2-12.2) K/uL Hgb (14.0-18.0) gm/dl MPV 11.0 H (7.4-10.4) fl Neutrophils % 82.0 H (47-80) % Monocytes % (0-9) % Lymphocytes 7.0 L (16-45) % BUN 24 H (8-23) mg/dL Random Glucose 192 H (74-109) mg/dL Urine Nitrite Positive H (NEGATIVE) Ur Leukocyte Esterase Trace H (NEGATIVE) 12/14/18 12/14/18 Range/Units 06:30 08:57 WBC 13.8 H (4.2-12.2) K/uL Hgb 13.7 L (14.0-18.0) gm/dl MPV 11.1 H (7.4-10.4) fl Neutrophils % (47-80) % Monocytes % 10.1 H (0-9) % Lymphocytes (16-45) % BUN (8-23) mg/dL Random Glucose 117 H (74-109) mg/dL Urine Nitrite (NEGATIVE) Ur Leukocyte Esterase (NEGATIVE) Condition at Discharge: (1) Good Discharge Medications - Discharge Medications Prescriptions: Ciprofloxacin HCl [Cipro] 500 mg PO Q12HR 10 Days #20 tablet Home Medications: Ambulatory Orders Aspirin [Aspirin EC] 81 mg PO DAILY 09/26/14 [Last Taken 08/25/18] Atorvastatin Calcium [Lipitor] 40 mg PO QHS 09/26/14 [Last Taken 08/25/18] Multivitamin [Multi-Vitamin Daily] 1 each PO DAILY 09/26/14 [Last Taken 08/25/18] Ciprofloxacin HCl [Cipro] 500 mg PO Q12HR 10 Days #20 tablet 12/14/18 [Last Taken Unknown] Discharge Plan - Discharge Instructions Activity at Discharge: Increase Activity as Tolerated Diet at Discharge: Advance to Usual Diet Additional Instructions: Follow up with your PCP in 1 week Follow up with Urology in 1 week Quality Measures - Quality Measures Quality Measures: Advance Directives, Documentation of Current Medications in Medical Record, Elder Maltreatment Screen and Follow-Up Plan, Screening for High Blood Pressure and F/U Documented - Current Medications Quality Measure: Measure #130: Documentation of Current Medications Documentation of Current Medications: <Current Medications Documented/Reviewed> [[id number]] - Blood Pressure Screening Quality Measure: Screening for High Blood Pressure and Follow-Up Documented Does Patient Have Any of the Following: No Blood Pressure Classification: Pre-Hypertensive BP Reading Systolic Measurement: 140 Diastolic Measurement: 82 Screening for High Blood Pressure: < Pre-Hypertensive BP, F/U Documented > [G8950] Pre-Hypertensive Follow-up Interventions: Follow-up with rescreen every year. - Advance Directives Quality Measure: Measure #47: Care Plan Advance Directives Established: No Advance Directives Information Provided To Patient: Already Provided Advance Directives on File: No Living Will: Yes Power of Security Shift Supervisor: Yes Advance Care Planning: <Care Plan/Decision Maker Documented; Discussed & Documented> [1123F] - Elder Abuse Suspicion Index Screening: Elder Abuse Suspicion Index Screening Rely on people for bathing, dressing, shopping, banking, etc: No Prevented from getting food, clothes, medication, etc: No Made to feel shamed or threatened by someone: No Forced to sign papers or use money against will: No Feel afraid, touched in ways not wanted or hurt physically: No Poor eye contact, withdrawn, malnourished, cuts or bruises: No Screening Result: Negative result EASI Reference Information: Marilyn ARREOLA, Michael C, Camilo Ricks, Juan Carlos York.Development and validation of a tool to assist physicians identification of elder abuse: The Elder Abuse Suspicion Index (EASI ). Journal of Elder Abuse and Neglect, 2008; 20 (3): 276-300. - Elder Maltreatment Screen Quality Measures: Elder Maltreatment Screen and Follow-Up Plan Elder Maltreatment Screen: <Negative, No Follow-Up Plan Required> [U9087]
[2018-12-14] MEDS ORDERED: ATORVASTATIN 20 MG TABLET PO SCH (22:00)
== END 2018-12-14 11:48 | disposition home or self-care (01) | DRG 700 ==
LOC: ER 23:30 → MEDSURG 12-14 01:41
PROVIDERS: ADMIT Internal Medicine; ATTEND Internal Medicine
DX: T83.511A Infection and inflammatory reaction due to indwelling urethral catheter, initial encounter (principal); R53.1 Weakness; R05 Cough; R68.83 Chills (without fever); R50.9 Fever, unspecified; R51 Headache; F43.10 Post-traumatic stress disorder, unspecified; N31.9 Neuromuscular dysfunction of bladder, unspecified
CPT/HCPCS: 71046; 80048; 80053; 81001; 85025; 85027; 96365; 96366; 96374; 99223; 99285; J0696; J3480; J7030

== ENCOUNTER 2019-02-02 07:37 | Day surgery (SDC) | payer MEDICARE ==
[2019-02-02] MEDS ORDERED: PROPOFOL 10 MG/ML VIAL IV ONE (07:38)
[2019-02-02] MEDS ORDERED: LIDOCAINE 2% MDV (20MG/ML) 20ML VIAL IV ONE (07:38)
--- NOTE | 2019-02-02 14:10 | Operative Note ---
OPERATION: COLONOSCOPY. PREOPERATIVE DIAGNOSIS: Personal history of colon polyps. POSTOPERATIVE DIAGNOSIS: Normal exam. PREPARATION QUALITY: Good. ESTIMATED BLOOD LOSS: None. SPECIMENS: None. COMPLICATIONS: None apparent. PROCEDURE: After informed consent was obtained from the patient, he was placed in the left lateral decubitus position in the endoscopy suite, sedated and monitored by the department of anesthesia. Digital rectal examination was unremarkable. A well-lubricated [id number] colonoscope was inserted into the rectum and advanced to the cecum. The cecum, cecal bulb, ileocecal valve, appendiceal orifice, ascending colon, transverse colon, descending colon, sigmoid colon, and rectum were free of inflammatory changes, mass lesions, or polyps. Forward and J-turn views of the rectum and anorectum were unremarkable. The endoscope was straightened, the rectal ampulla deflated, and the endoscope was removed. RECOMMENDATIONS: I would suggest the patient undergo a repeat exam in 5 years or sooner should symptoms warrant. This all hinges on his medical comorbidities at the time. As always, thank you for allowing me to participate in the healthcare of your patients. ZAHEER
== END 2019-02-02 09:48 | disposition home or self-care (01) ==
LOC: HOP 07:37
PROVIDERS: ATTEND Internal Medicine Gastroenterology
DX: Z12.11 Encounter for screening for malignant neoplasm of colon (principal); Z86.010 Personal history of colon polyps; E78.00 Pure hypercholesterolemia, unspecified
CPT/HCPCS: 00812; G0105

== ENCOUNTER 2019-05-24 22:21 | Emergency (ER) | payer MEDICARE ==
[2019-05-24 22:49] LABS: URINE APPEARANCE CLEAR; URINE BILIRUBIN NEGATIVE (NEGATIVE); URINE BLOOD LARGE (NEGATIVE); URINE COLOR YELLOW; URINE GLUCOSE (UA) NEGATIVE (NEGATIVE); URINE KETONE NEGATIVE (NEGATIVE); URINE LEUKOCYTE ESTERASE NEGATIVE (NEGATIVE); URINE NITRITE NEGATIVE (NEGATIVE); URINE PROTEIN NEGATIVE (NEGATIVE); URINE UROBILINOGEN 0.2 E.U./dL (0.20 - 1.00)
--- NOTE | 2019-05-24 22:50 | Emergency Department Record ---
History of Present Illness - General Chief complaint: Male Urogenital Problem Stated complaint: CATHETER PROBLEMS Time Seen by Provider: 05/24/19 22:44 Source: Patient, Family () Mode of Arrival: Ambulatory Limitations: No limitations - History of Present Illness Initial comments: Pt to ED with from home for issues with normally scheduled straight cath. 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 This evening he saw bright red blood when he removed the cath. States he had a good return of urine but did see the blood. Pt does not feel over distended a this time. He denies trauma or injury with placing the cath. He has no pain to the bladder or penis. No blood from the meatus since cath. Pt called his urologist from [facility] in [place] who [facility] -: Hour(s) Radiation: None Other Reports: Blood in urine, Urinary retention - Related Data Sexually active: No Home Medications Medication Instructions Recorded Confirmed Last Taken Methenamine Hippurate 1 gm PO QAM 05/24/19 05/24/19 05/24/19 Terazosin HCl 5 mg PO QHS 05/24/19 05/24/19 05/24/19 Allergies Allergy/AdvReac Type Severity Reaction Status Date / Time sulfamethoxazole Allergy Intermediate Rash Verified 12/13/18 23:38 [From Bactrim] trimethoprim [From Bactrim] Allergy Intermediate Rash Verified 12/13/18 23:38 nabumetone [From Relafen] Allergy Mild no idea Verified 12/13/18 23:38 Travel/Exposure Screening - Travel/Exposure Within Last 30 Days Have you traveled within the last 30 days?: No - Additonal Travel/Exposure Details Have you been exposed to anyone with a communicable illness?: No - Travel Symptoms Symptom Screening: None Review of Systems Constitutional: Denies: Chills, Fever Eyes: Denies: Photophobia ENT: Denies: Congestion Respiratory: Denies: Cough Cardiovascular: Denies: Chest pain Endocrine: Denies: Fatigue Gastrointestinal: Denies: Abdominal pain, Diarrhea, Nausea, Vomiting Genitourinary: Reports: As per HPI, Hematuria. Denies: Discharge, Dysuria, Frequency, Incontinence Musculoskeletal: Denies: Back pain Skin: Denies: Bruising, Rash Neurological: Denies: Headache, Tremors Psychiatric: Denies: Anxiety Hematological/Lymphatic: Denies: Anemia Past Medical History - SOCIAL HISTORY Smoking Status: Never smoker - RESPIRATORY Hx Respiratory Disorders: No - CARDIOVASCULAR Hx Cardio Disorders: No - NEURO Hx Neuro Disorders: No - GI Hx GI Disorders: Yes Hx Obstructive Bowel: Yes (many yrs ago) - Hx Genitourinary Disorders: Yes Hx Bladder Problem: Yes (caths 5 x day) Hx Prostate Problems: Yes (TURP) Hx UTI: Yes (yr ago) - ENDOCRINE Hx Endocrine Disorders: No - MUSCULOSKELETAL Comment:: swelling left breast and tender - PSYCH Hx Psych Problems: Yes Comment:: PTSD, [place] vet - HEMATOLOGY/ONCOLOGY Hx Hematology/Oncology Disorders: No Family Medical History Hx Diabetes: Mother Physical Exam - General General Appearance: Alert, Oriented x3, Cooperative, No acute distress - Head Head exam: Atraumatic, Normocephalic - Eye Eye exam: PERRL - ENT ENT exam: Mucous membranes moist Ear exam: Normal external inspection Nasal Exam: Normal inspection - Neck Neck exam: Normal inspection, Full ROM - Respiratory Respiratory exam: Normal lung sounds bilaterally. negative: Respiratory distress - Cardiovascular Cardiovascular Exam: Regular rate, Normal rhythm - GI/Abdominal GI/Abdominal exam: Soft, Normal bowel sounds. negative: Distended, Guarding, Tenderness - exam: Normal inspection. negative: Scrotal swelling, Urethral discharge - Extremities Extremities exam: Normal inspection - Neurological Neurological exam: Alert, Normal gait, Oriented X3 - Psychiatric Psychiatric exam: Normal affect, Normal mood - Skin Skin exam: Normal color. negative: Rash Course Vital Signs 05/24/19 22:28 Temperature 98 F Pulse Rate [ 68 Pulse Ox Probe] Respiratory 20 Rate Blood Pressure 176/78 [Left Arm] Pulse Ox 97 - Reevaluation(s) Reevaluation #1: 05/24/19 22:[address] exam with and RN. Pt cathed by RN with 16g garrett without incident. Passed smoothly without pain. Return of blood tinged urine initially followed by clear yellow urine. 500 cc of initial drainage. UA sent. Reevaluation #2: 05/24/19 23:12 UA with 10-15RBC and no evidence infection. Urine in garrett bag is clear and yellow. Pt is not febrile and feels fine. We will remove the cath tonight and he will continue his plan at home with5 caths per day. In the AM he will call his urologist for further plan. No AB at this time. UA results given to PT> Disposition Disposition: Discharge Clinical Impression: Intermittent self-catheterization of bladder Hematuria Qualifiers: Hematuria type: asymptomatic microscopic Qualified Code(s): R31.21 - Asymptomatic microscopic hematuria Condition: (1) Good Instructions: Hematuria (ED) Additional Instructions: Continue to cath yourself 5 times a day. Call your urologist in the AM for further direction. Return to the ED as needed. Forms: Patient Portal Access Time of Disposition: 23:14 Quality - Quality Measures Quality Measures: N/A - Blood Pressure Screening Does Patient Have Any of the Following: No Blood Pressure Classification: Hypertensive Reading Systolic Measurement: 176 Diastolic Measurement: 78 Screening for High Blood Pressure: < Pre-Hypertensive BP, F/U Documented > [[id number]] Pre-Hypertensive Follow-up Interventions: Follow-up with rescreen every year.
[2019-05-24 22:59] LABS: URINE EPITHELIAL CELLS NONE SEEN (FEW); URINE WBC NONE SEEN (0-2/hpf)
== END 2019-05-24 23:27 | disposition home or self-care (01) ==
LOC: ER 22:21
DX: R31.0 Gross hematuria (principal); N31.2 Flaccid neuropathic bladder, not elsewhere classified; R33.8 Other retention of urine; Z96.0 Presence of urogenital implants
CPT/HCPCS: 81001; 99283